=== PATIENT | male | born 1945 | race Caucasian/White ===

== ENCOUNTER → 2016-09-18 | Outpatient (CLI) | payer OTHER, MEDICARE ==
--- NOTE | 2016-09-18 10:41 | DX ---
Chest, PA and Lateral History: Cough Comparison: November 09, 2012 Findings: Lungs are clear, without infiltrate or consolidation. There is chronic or recurrent retroca rdiac bronchial wall thickening. Lung volumes are again moderately prominent. Heart size and pulmonar y vascularity are normal. There is stable tortuosity of the aorta. There is no adenopathy or mass les ion. There is no pleural effusion or pneumothorax. A stable old healed right clavicle fracture is not ed. Impression: No pneumonia. COPD +- airways disease.
== END ==
LOC: GIMAGING 10:17
PROVIDERS: ATTEND Family Medicine
DX: R05 Cough (principal)
CPT/HCPCS: 71020-PO

== ENCOUNTER 2016-09-25 19:15 | Observation (INO) | payer OTHER, MEDICARE ==
--- NOTE | 2016-09-25 19:42 | CPEKG ---
Heart Rate: 165 RR Interval: 364 QRSD Interval: 94 QT Interval: 286 QTC Interval: 474 P [place]: 0 QRS [place]: 21 T Wave [place]: 26 EKG Severity - ABNORMAL ECG - EKG Impression: atrial flutter Electronically Signed By: Evan May 26-Sep-2016 14:45:48
--- NOTE | 2016-09-25 19:46 | EDPHY ---
H & P Stated Complaint: Rapid Heart Rate/ SOB HPI/ROS: CHIEF COMPLAINT: Tachycardia. HISTORY OF PRESENT ILLNESS: The patient is a 70-year-old male with a history of SVT status post successful ablation in 2012 who presents with tachycardia for the past week. He visited his primary care provider, Dr. Bah, 7 days ago because of cough and respiratory symptoms. His fast heart rate was noticed at that time. He was started on a Z-Brandon which he has completed and also on prednisone and an inhaler. He has been re-evaluated in the office of his primary care physician a couple of times since then because of persistent cough. He tells me that each time he was noted to have an elevated heart rate. He believes that his heart rate was measured in the 150s to 160s. Tonight he was advised to come to the hospital to have a blood test done; he believes that he was going to be tested for pulmonary embolism. He denies chest pain, lightheadedness, or shortness of breath. He has not had calf pain or swelling. No recent travel. He has not had fever. He does admit associated mild diaphoresis. He takes Ritalin for attention deficit disorder and was recently started on and inhaler and prednisone; he does not use illicit drugs. REVIEW OF SYSTEMS: A 10 point review of systems was performed and is negative with the exception of the elements mentioned in the history of present illness. Source: Patient Exam Limitations: No limitations - Personal History Current Tetanus/Diphtheria Vaccine: Yes Current Tetanus Diphtheria and Acellular Pertussis (TDAP): Yes - Medical/Surgical History Hx Asthma: No Hx Chronic Respiratory Disease: No Hx Diabetes: No Hx Cardiac Disease: No Hx Renal Disease: No Hx Cirrhosis: No Hx Alcoholism: No Hx HIV/AIDS: No Hx Splenectomy or Spleen Trauma: No Other PMH: 1. History of tachycardia status post ablation in 2012. 2. Hyperlipidemia. 3. Attention deficit disorder. 4. Glaucoma. 5. 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 He lives alone/independently. - Physical Exam Exam: General Appearance: Alert, no acute distress. Pulse 170. BP 180/118. Eyes: Pupils equal and round, no conjunctival injection, no discharge. ENT, Mouth: Mucous membranes are moist, no oropharyngeal erythema or edema. Neck: No lymphadenopathy, supple. No jugular venous distention. No carotid bruits. Respiratory: Lungs are clear to auscultation; no wheezes, rales, or rhonchi. Cardiovascular: Tachycardic. Gastrointestinal: Abdomen is soft and nontender, no masses or organomegaly, bowel sounds normal. Skin: Warm and dry, no rashes, normal color. Back: Nontender to palpation over the thoracolumbar spine. Extremities: Trace bilateral ankle edema. No calf tenderness or swelling. Neurological: Alert and oriented. Moving all four extremities easily and equally. Psychiatric: Normal affect. Constitutional: Initial Vital Signs Temperature (C) 36.9 C 09/25/16 19:23 Heart Rate 170 H 09/25/16 19:23 Respiratory Rate 16 09/25/16 19:23 Blood Pressure 148/102 H 09/25/16 19:23 O2 Sat (%) 94 09/25/16 19:23 O2 Delivery Mode Room Air Allergies/Adverse Reactions: No Known Allergies Allergy (Unverified 03/16/13 10:47) Home Medications: Medication Instructions Recorded Atorvastatin Calcium [Lipitor 10 10 mg PO DAILY 03/16/13 mg (RX)] Coenzyme Q10 [Co Q-10 30 mg (OTC)] 30 mg PO DAILY 03/16/13 Fluticasone Nasal [Flonase Nasal 1 sprays NASAL DAILY PRN 03/16/13 Flushing (RX)] Magnesium Oxide [Magnesium Oxide 400 mg PO DAILY 03/16/13 400 mg (OTC)] Methylphenidate HCl [Ritalin 5mg 5 mg PO TID PRN 03/16/13 (RX)] Zolpidem Tartrate [Ambien 10 mg] 10 mg PO HS PRN 03/16/13 Albuterol [Ventolin Hfa Inhaler] 2 puffs IH Q4H PRN 09/25/16 Aspirin EC [Aspirin EC 81 mg (*)] 81 mg PO DAILY 09/25/16 Cholecalciferol Vit D3 [Vitamin D3 1,000 units PO DAILY 09/25/16 (*)] Dorzolamide 2% [Trusopt 2% (*)] 1 drops OP TID 09/25/16 Guaifenesin/Codeine Phosphate 10 ml PO Q6H PRN 09/25/16 [Codeine-Guaifen 10-100 mg/5 ml] Multivitamins [Multivitamin (*)] 1 each PO DAILY 09/25/16 Psyllium Husk [Metamucil] 1 - 2 tab PO DAILY 09/25/16 predniSONE 40 mg PO DAILY 09/25/16 Medical Decision Making - Diagnostics EKG Interpretation: 12 lead EKG is interpreted in Trace master View by emergency department physician. Tachycardia with a rate of 170. This appears to be atrial flutter. 2nd EKG performed after adenosine was administered also shows tachycardia with a rate of 170 and atrial flutter. Imaging: X-ray of the chest was obtained. I viewed the images myself on the PACS system. The radiologist interpretation per Dr. Mendoza is: 1. Borderline cardiac enlargement without pulmonary edema. 2. Suspect airways disease. I discussed the x-ray findings with the patient. ED Course/Re-evaluation: On arrival the patient's EKG showed sinus tachycardia with a rate of 170. The rhythm appears to be atrial flutter. An IV was established and labs ordered. No carotid bruits were heard and carotid massage was performed by me with no effect. The patient has a history of tachycardia that was treated by ablation in 2012. To his knowledge, he has not had any further episodes of tachycardia. He was not aware that his heart rate was fast. He has not had chest pain or shortness of breath. I suspect that this tachycardia has been present for the past few days. He reports that it was commented upon when he visited his primary care office over the past week. 2010: Spoke with Dr. Diaz, cardiology. 2041: Will try to slow his heart rate with adenosine. 6mg IV Adenosine administered. Heart rate 166. 2049: 12mg IV Adenosine administered. Heart rate 168. Is the adenosine has been ineffective will begin Diltiazem 20mg IV and a Diltiazem drip. 2127: Consulted with Dr. Arnold, hospitalist. He accepts admission. Patient is being admitted to the PCU on a diltiazem drip. While in the emergency department his heart rate decreased to 80s to low 100s. He remained hypertensive. At no time did he reports symptoms such as chest pain or shortness of breath. Differential Diagnosis: I considered a differential diagnosis that includes but is not limited to supraventricular tachycardia, atrial flutter, atrial fibrillation, wide complex tachycardia, ventricular fibrillation, with potential etiologies including myocardial ischemia, valvular disease, use of stimulants, recent infection, hypertension, and heart failure. - Data Points Laboratory Results: Laboratory Results 09/25/16 19:34 09/25/16 19:34 Medications Given: Discontinued Medications Adenosine (Adenosine) 12 mg IVP EDNOW ONE Stop: 09/25/16 20:51 Last Admin: 09/25/16 21:01 Dose: 12 mg Adenosine (Adenosine) 6 mg IVP EDNOW ONE Stop: 09/25/16 20:44 Last Admin: 09/25/16 21:01 Dose: 6 mg Diltiazem HCl (Cardizem 25 Mg/5 Ml Vial) 20 mg IVP EDNOW ONE Stop: 09/25/16 20:53 Last Admin: 09/25/16 20:59 Dose: 20 mg Dorzolamide HCl (Trusopt 2%) 1 drops OP TID FCO Stop: 03/25/17 08:59 Last Admin: 09/26/16 18:13 Dose: Not Given Enoxaparin Sodium (Lovenox) 40 mg SC DAILY FCO Stop: 03/25/17 08:59 Last Admin: 09/26/16 08:40 Dose: 40 mg Diltiazem HCl 125 mg/ Dextrose 150 mls @ 0 mls/hr IV EDNOW ONE; As Directed PRN Reason: Protocol Stop: 09/25/16 20:53 Last Admin: 09/25/16 21:07 Dose: 150 mls Sodium Chloride (Ns) 1,000 mls @ 100 mls/hr IV CONT FCO Stop: 03/24/17 22:44 Last Admin: 09/26/16 14:46 Dose: 1,000 mls Diltiazem HCl 125 mg/ Dextrose 150 mls @ 0 mls/hr IV CONT FCO; Per Protocol PRN Reason: Protocol Stop: 03/24/17 22:59 Last Admin: 09/26/16 08:48 Dose: 150 mls Zolpidem Tartrate (Ambien) 5 mg PO HS PRN PRN Reason: Sleep/Insomnia, use 1st Stop: 03/24/17 22:34 Last Admin: 09/26/16 00:33 Dose: 5 mg Departure - Departure Disposition: [facility] Clinical Impression: Tachycardia Condition: Fair Report Scribed for: Bee Welch Report Scribed by: Andreas Diop Date of Report: 09/25/16 Time of Report: 19:46 Physician Review and Approval Statement: 09/27/16 07:17 Portions of this note were transcribed by the faculty i on call medical assistant. I, Dr. Bee Welch, personally performed the history, physical exam, and medical decision- making; and confirmed the accuracy of the information in the transcribed note.
[2016-09-25 19:51] LABS: ABSOLUTE NRBC COUNT 0.02 10^3/uL (0-0.01); ADD DIFF? YES; ADD MORPH? NO; ADD SCAN? NO; ATYPICAL LYMPHOCYTE FLAG 0 (0-99); FRAGMENT RBC FLAG 0 (0-99); HEMATOCRIT 45.2 % (40.0-51.0); HEMOGLOBIN 15.5 g/dL (13.7-17.5); LEFT SHIFT FLG 40 (0-99); LIPEMIA HEMOLYSIS FLAG 90 (0-99); MEAN CELL HEMOGLOBIN 30.3 pg (27.9-34.1); MEAN CELL HEMOGLOBIN CONCENTR. 34.3 g/dL (32.4-36.7); MEAN CELL VOLUME 88.3 fL (81.5-99.8); MEAN PLATELET VOLUME 9.1 fL (8.7-11.7); NRBC-AUTO% 0.2 % (0.0-0.2); PLATELET CLUMPS FLAG 0 (0-99); PLATELET COUNT 474 10^3/uL (150-400); RED BLOOD CELL COUNT 5.12 10^6/uL (4.40-6.38); RED CELL DISTRIBUTION WIDTH 12.3 % (11.5-15.2)
[2016-09-25 19:58] LABS: APTT 25.7 SEC (23.0-38.0); INR 0.98 (0.83-1.16); PROTIME(PATIENT) 12.9 SEC (12.0-15.0)
[2016-09-25 19:59] LABS: ANION GAP 16 mEq/L (8-16); CALCIUM 9.4 mg/dL (8.5-10.4); CARBON DIOXIDE 21 mEq/l (22-31); CHLORIDE 110 mEq/L (97-110); GLOMERULAR FILTRATION RATE > 60; GLUCOSE 139 mg/dL (70-100); POTASSIUM 4.5 mEq/L (3.5-5.2); SODIUM 147 mEq/L (134-144)
[2016-09-25 20:09] LABS: TROPONIN I < 0.012 ng/mL (0-0.034)
[2016-09-25] MEDS ORDERED: ADENOSINE 6 MG/2 ML VIAL ONE (20:29)
[2016-09-25 20:35] LABS: PLATELET ESTIMATE ADEQUATE (ADEQ)
[2016-09-25] MEDS ORDERED: ADENOSINE 6 MG/2 ML VIAL IVP ONE ×2 (20:43→20:50)
--- NOTE | 2016-09-25 20:45 | DX ---
Portable Chest September 25, 2016 at 2027 hours Clinical Indications: Cough, fever and fatigue for one week in a 70-year-old male; comparison to the prior study September 18, 2016. Findings: No focal pulmonary consolidation is identified. Mild peribronchial thickening is seen and t here is minimal left basilar atelectasis. Heart is enlarged allowing for portable technique. No pleur al effusion is identified. Pulmonary vascularity is normal. Aortic tortuosity is seen which can be as sociated with systemic arterial hypertension. Hyperexpansion is suspected. Impression: 1. Borderline cardiac enlargement without pulmonary edema. 2. Suspect airways disease.
[2016-09-25] MEDS ORDERED: DILTIAZEM 25 MG/5 ML VIAL IVP ONE (20:52)
[2016-09-25] MEDS ORDERED: DILTIAZEM 125 MG in D5W 125 ML IV ONE (20:52)
--- NOTE | 2016-09-25 20:55 | CPEKG ---
Heart Rate: 169 RR Interval: 355 P-R Interval: 352 QRSD Interval: 98 QT Interval: 276 QTC Interval: 463 P Constant[place]: 0 QRS Constant[place]: -9 T Wave Constantine: -47 EKG Severity - ABNORMAL ECG - EKG Impression: Atrial flutter Electronically Signed By: Bee Welch 26-Sep-2016 00:28:19
[2016-09-25] MEDS ORDERED: HYDROCODONE/APAP 5/325 TAB PO PRN (22:35)
[2016-09-25] MEDS ORDERED: ONDANSETRON 4 MG/2 ML VIAL IVP PRN (22:35)
[2016-09-25] MEDS ORDERED: ONDANSETRON DISINTEGRATING 4 MG TAB PO PRN (22:35)
[2016-09-25] MEDS ORDERED: ACETAMINOPHEN 325 MG TAB PO PRN (22:35)
[2016-09-25] MEDS ORDERED: ZOLPIDEM TARTRATE 5 MG TAB PO PRN (22:35)
[2016-09-25] MEDS ORDERED: DILTIAZEM 125 MG in D5W 125 ML IV SCH (23:00)
[2016-09-25] MEDS ORDERED: PSYLLIUM HUSK PO PRN (23:42)
--- NOTE | 2016-09-26 00:03 | PDGENHP ---
History and Physical - Chief Complaint SVT - History of Present Illness Patient is a 70-year-old male with history of hyperlipidemia, obstructive sleep apnea and glaucoma who presents ED with tachycardia. Patient states for the past week and a half he has been experiencing upper respiratory infection symptoms, including nasal congestion, sneezing and coughing. He went to his PMD' s office with these symptoms, his HR was noted to be elevated (130range), he had a chest x-ray that did not reveal any infiltrate and he was given a z-pack, an albuterol inhaler and a short course of prednisone. He complied with these medications, however, he continued to have a cough and felt generally fatigued. He reports associated pleuritic chest pain with deep inspiration and coughing, but denied any palpitations, substernal chest pain, lightheadedness/dizziness. He went again to his PMD's office on 09/23 and his HR was again noted to be elevated. He was called back and suggested he get another blood test to r/o a pulmonary embolism. He then decided to come to the ED for this blood test to speed up the processing. On arrival to the ED, patient's HR was noted to be in the 160-170 range, BP stable, afebrile. EKG revealed SVT. He was given adenosine 6, 12 mg without improvement in rate. He was then given diltiazem IVP and initiated on dilt drip and HR improved to the 80 range. BP remained stable throughout ED course. CXR did not reveal any acute pathology and labs were wnl, including neg troponin and d-dimer. He was then admitted to the hospitalist service for further management. History Information - Allergies/Home Medication List Allergies/Adverse Reactions: No Known Allergies Allergy (Unverified 03/16/13 10:47) Home Medications: Atorvastatin Calcium [Lipitor 10 mg (RX)] 10 mg PO DAILY 03/16/13 [Last Taken ] Coenzyme Q10 [Co Q-10 30 mg (OTC)] 30 mg PO DAILY 03/16/13 [Last Taken 09/25/16] Fluticasone Nasal [Flonase Nasal Whit[place] (RX)] 1 sprays NASAL DAILY PRN 03/16/13 [ Last Taken 09/20/16] Magnesium Oxide [Magnesium Oxide 400 mg (OTC)] 400 mg PO DAILY 03/16/13 [Last Taken 09/25/16] Methylphenidate HCl [Ritalin 5mg (RX)] 5 mg PO TID PRN 03/16/13 [Last Taken 12/01] Zolpidem Tartrate [Ambien 10 mg] 10 mg PO HS PRN 03/16/13 [Last Taken 09/24/16] Albuterol [Ventolin Hfa Inhaler] 2 puffs IH Q4H PRN 09/25/16 [Last Taken Unknown ] Aspirin EC [Aspirin EC 81 mg (*)] 81 mg PO DAILY 09/25/16 [Last Taken 09/25/16] Cholecalciferol Vit D3 [Vitamin D3 (*)] 1,000 units PO DAILY 09/25/16 [Last Taken 09/25/16] Dorzolamide 2% [Trusopt 2% (*)] 1 drops OP TID 09/25/16 [Last Taken 09/25/16] Guaifenesin/Codeine Phosphate [Codeine-Guaifen 10-100 mg/5 ml] 10 ml PO Q6H PRN 09/25/16 [Last Taken 09/25/16] Multivitamins [Multivitamin (*)] 1 each PO DAILY 09/25/16 [Last Taken 09/25/16] Psyllium Husk [Metamucil] 1 - 2 tab PO DAILY 09/25/16 [Last Taken 09/25/16] predniSONE 40 mg PO DAILY 09/25/16 [Last Taken 09/25/16] I have personally reviewed and updated: family history, medical history, social history, surgical history - Past Medical History Additional medical history: Previous history of AVNRT s/p ablation. Hyperlipidemia. ADHD. SHI, using CPAP nightly. glaucoma - Surgical History Additional surgical history: Tonsillectomy. 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 Review of Systems ROS: 10pt was reviewed & negative except for what was stated in HPI & below Physical Exam Temp Pulse Resp BP Pulse Ox 36.7 C 91 16 137/90 H 91 L 09/25/16 23:44 09/25/16 23:44 09/25/16 23:44 09/25/16 23:44 09/25/16 23:44 Constitutional: no apparent distress, appears nourished, not in pain Eyes: PERRL, anicteric sclera, EOMI Ears, Nose, Mouth, Throat: moist mucous membranes, hearing normal, ears appear normal, no oral mucosal ulcers Cardiovascular: regular rate and rhythym, no murmur, rub, or gallop, pulses symmetric bilaterally, No JVD, No edema Peripheral Pulses: 2+: dorsalis-pedis (R), dorsalis-pedis (L) Respiratory: no respiratory distress, no rales or rhonchi, clear to auscultation Gastrointestinal: normoactive bowel sounds, soft, non-tender abdomen, no palpable masses, No guarding, No rebound Genitourinary: no bladder fullness, no bladder tenderness Skin: warm, normal color, no rashes or abrasions, no fluctuance, no induration, No mottled Musculoskeletal: full muscle strength, no muscle tenderness, normal joint ROM, no joint effusions Neurologic: AAOx3, sensation intact bilaterally, CN II-XII Intact, No weakness, No numbness Psychiatric: interacting appropriately, not anxious, not encephalopathic, thought process linear Lab Data & Imaging Review 09/25/16 19:34 09/25/16 19:34 WBC 12.67 10^3/uL (3.80-9.50) H 09/25/16 19:34 RBC 5.12 10^6/uL (4.40-6.38) 09/25/16 19:34 Hgb 15.5 g/dL (13.7-17.5) 09/25/16 19:34 Hct 45.2 % (40.0-51.0) 09/25/16 19:34 MCV 88.3 fL (81.5-99.8) 09/25/16 19:34 MCH 30.3 pg (27.9-34.1) 09/25/16 19:34 MCHC 34.3 g/dL (32.4-36.7) 09/25/16 19:34 RDW 12.3 % (11.5-15.2) 09/25/16 19:34 Plt Count 474 10^3/uL (150-400) H 09/25/16 19:34 MPV 9.1 fL (8.7-11.7) 09/25/16 19:34 Neut % (Auto) Not Reported 09/25/16 19:34 Lymph % (Auto) Not Reported 09/25/16 19:34 [place] % (Auto) Not Reported 09/25/16 19:34 Eos % (Auto) Not Reported 09/25/16 19:34 Baso % (Auto) Not Reported 09/25/16 19:34 Nucleat RBC Rel Count 0.2 % (0.0-0.2) 09/25/16 19:34 Absolute Neuts (auto) Not Reported 09/25/16 19:34 Absolute Lymphs (auto) Not Reported 09/25/16 19:34 Absolute Monos (auto) Not Reported 09/25/16 19:34 Absolute Eos (auto) Not Reported 09/25/16 19:34 Absolute Basos (auto) Not Reported 09/25/16 19:34 Absolute Nucleated RBC 0.02 10^3/uL (0-0.01) H 09/25/16 19:34 Immature Gran % Not Reported 09/25/16 19:34 Seg Neutrophils % 74 % 09/25/16 19:34 Band Neutrophils % 3 % 09/25/16 19:34 Lymphocytes % 16 % 09/25/16 19:34 Monocytes % 5 % 09/25/16 19:34 Metamyelocytes % 2 % 09/25/16 19:34 Immature Gran # Not Reported 09/25/16 19:34 Absolute Seg Neuts 9.38 10^/uL (1.70-6.50) H 09/25/16 19:34 Absolute Band Neuts 0.38 10^3/uL (0.00-0.70) 09/25/16 19:34 Absolute Lymphocytes 2.03 10^3/uL (1.00-3.00) 09/25/16 19:34 Absolute Monocytes 0.63 10^3/uL (0.30-0.80) 09/25/16 19:34 Absolute Metamyelocyte 0.25 10^3/mL (0.00-0.00) H 09/25/16 19:34 RBC/WBC/PLT Morphology NORMAL (NORMAL) 09/25/16 19:34 Platelet Estimate ADEQUATE (ADEQ) 09/25/16 19:34 PT 12.9 SEC (12.0-15.0) 09/25/16 19:34 INR 0.98 (0.83-1.16) 09/25/16 19:34 APTT 25.7 SEC (23.0-38.0) 09/25/16 19:34 D-Dimer 0.42 ug/mLFEU (0.00-0.50) 09/25/16 19:34 Sodium 147 mEq/L (134-144) H 09/25/16 19:34 Potassium 4.5 mEq/L (3.5-5.2) 09/25/16 19:34 Chloride 110 mEq/L (97-110) 09/25/16 19:34 Carbon Dioxide 21 mEq/l (22-31) L 09/25/16 19:34 Anion Gap 16 mEq/L (8-16) 09/25/16 19:34 BUN 19 mg/dL (7-23) 09/25/16 19:34 Creatinine 1.0 mg/dL (0.7-1.3) 09/25/16 19:34 Estimated GFR > 60 09/25/16 19:34 Glucose 139 mg/dL (70-100) H 09/25/16 19:34 Calcium 9.4 mg/dL (8.5-10.4) 09/25/16 19:34 Troponin I < 0.012 ng/mL (0-0.034) 09/25/16 19:34 Visualized and Interpreted Chest x-ray results: Yes Chest X-Ray results: no infiltrate, normal Visualized and Interpreted EKG results: Yes EKG additional interpertation: narrow complex tachycardia @ 169 bpm, no obvious ischemic changes; inf q waves Assessment & Plan Assessment: Patient is a 70-year-old male with history of previously ablated AVNRT, hyperlipidemia, attention deficit hyperactivity disorder presents to the ED with a tachycardia. EKG reveals SVT to the 160-170 range, unresponsive did adenosine, has improved with diltiazem. Plan: # svt Patient largely asymptomatic despite tachycardia on arrival. Initial EKG a narrow complex tachycardia/SVT, however, rate-controlled EKG reveals Aflutter. BP remained stable throughout presenting course, and given pt's account of HPI, it seems SVT has been present for at least 1 week. D-dimer is negative, troponin also negative. Rate has improved with diltiazem drip. CHADSVASc score is 1 (age), pt already on aspirin daily. Cardiology has been consulted by the ED. - monitor on telemetry - check TTE, TSH, lipid panel - cont diltiazem drip, transition to PO meds - cont aspirin daily for stroke prevention - f/u cardiology recs regarding CV # cough/URI Patient describes URI-type symptoms for about 1 week, feels they have begun to improve. Denies any recent fevers/chills, although does report subjective fever early in the course. Leukocytosis present on arrival likely reactive and related to recent initiation of prednisone. Respiratory status stable without O2 supplementation. # HLD Cont home statin # ADHD Will hold home stimulant given tachyarrhythmia. # Glaucoma cont home eye drops. # dispo: admit to observation status # full code
--- NOTE | 2016-09-26 00:11 | CPEKG ---
Heart Rate: 85 RR Interval: 706 P-R Interval: 184 QRSD Interval: 104 QT Interval: 444 QTC Interval: 528 P [place]on: 63 QRS [place]: -22 T Wave [place]: -19 EKG Severity - ABNORMAL ECG - EKG Impression: atrial flutter EKG Impression: BORDERLINE LEFT AXIS DEVIATION Electronically Signed By: Evan May 26-Sep-2016 04:57:10
[2016-09-26] MEDS ORDERED: PSYLLIUM METAMUCIL 1 PKT PO PRN (00:17)
[2016-09-26] MEDS: guaiFENesin/CODEINE PHOS 10 ML UDCUP PO PRN ×3 (00:33→18:13)
[2016-09-26] MEDS: NS 1,000 ML IV SCH ×2 (03:45→14:46)
[2016-09-26 07:16] LABS: ABSOLUTE NRBC COUNT 0.02 10^3/uL (0-0.01); ADD DIFF? YES; ADD MORPH? NO; ADD SCAN? NO; ATYPICAL LYMPHOCYTE FLAG 10 (0-99); FRAGMENT RBC FLAG 0 (0-99); HEMATOCRIT 43.9 % (40.0-51.0); HEMOGLOBIN 14.6 g/dL (13.7-17.5); LEFT SHIFT FLG 40 (0-99); LIPEMIA HEMOLYSIS FLAG 80 (0-99); MEAN CELL HEMOGLOBIN 29.7 pg (27.9-34.1); MEAN CELL HEMOGLOBIN CONCENTR. 33.3 g/dL (32.4-36.7); MEAN CELL VOLUME 89.2 fL (81.5-99.8); MEAN PLATELET VOLUME 9.1 fL (8.7-11.7); NRBC-AUTO% 0.2 % (0.0-0.2); PLATELET CLUMPS FLAG 0 (0-99); PLATELET COUNT 441 10^3/uL (150-400); RED BLOOD CELL COUNT 4.92 10^6/uL (4.40-6.38); RED CELL DISTRIBUTION WIDTH 12.5 % (11.5-15.2)
[2016-09-26 07:21] LABS: INR 0.97 (0.83-1.16); PROTIME(PATIENT) 12.8 SEC (12.0-15.0)
[2016-09-26 07:28] LABS: COLOR YELLOW; LEUKOCYTE ESTERASE,URINE NEGATIVE (NEGATIVE); NITRITE,URINE NEGATIVE (NEGATIVE)
[2016-09-26 07:38] LABS: ANION GAP 14 mEq/L (8-16); CALCIUM 9.1 mg/dL (8.5-10.4); CARBON DIOXIDE 25 mEq/l (22-31); CHLORIDE 108 mEq/L (97-110); CHOLESTEROL 152 mg/dL (140-220); CREATININE 0.9 mg/dL (0.7-1.3); GLOMERULAR FILTRATION RATE > 60; GLUCOSE 105 mg/dL (70-100); HIGH DENSITY LIPOPROTEIN 31 mg/dL (40-65); LDL/HDL RATIO 2.84 RATIO (1.00-3.64); LOW DENSITY LIPOPROTEIN 88 mg/dL (80-100); NON-HIGH DENSITY LIPOPROTEIN 121 mg/dL (90-129); POTASSIUM 4.2 mEq/L (3.5-5.2); SODIUM 147 mEq/L (134-144); TRIGLYCERIDE 167 mg/dL (40-150); VERY LOW DENSITY LIPOPROTEINS 33 mg/dL (8-25)
[2016-09-26 07:47] LABS: TROPONIN I 0.014 ng/mL (0-0.034)
[2016-09-26 07:59] LABS: PLATELET ESTIMATE INCREASED (ADEQ)
[2016-09-26 08:02] LABS: LARGE PLATELETS PRESENT
[2016-09-26] MEDS: DORZOLAMIDE 2% OPTH DROPS OP SCH ×3 (08:33→19:54)
--- NOTE | 2016-09-26 08:38 | CPEKG ---
Heart Rate: 82 RR Interval: 732 P-R Interval: 216 QRSD Interval: 100 QT Interval: 456 QTC Interval: 533 P Sullivan: 58 QRS Sullivan: -10 T Wave Sullivan: -7 EKG Severity - ABNORMAL ECG - EKG Impression: ATRIAL FLUTTER Electronically Signed By: Evan May 26-Sep-2016 14:44:33
[2016-09-26] MEDS: CHOLECALCIFEROL VIT D3 1,000 UNITS TAB PO SCH (08:41)
[2016-09-26] MEDS: ASPIRIN EC 81 MG TAB PO SCH (08:41)
[2016-09-26] MEDS: ATORVASTATIN CALCIUM 10 MG TAB PO SCH (08:41)
[2016-09-26] MEDS: MULTIVITAMINS 1 EACH TAB PO SCH (08:41)
[2016-09-26] MEDS: MAGNESIUM OXIDE 400 MG TAB PO SCH (08:41)
[2016-09-26] MEDS ORDERED: ENOXAPARIN 40 MG/0.4 ML SYR SC SCH (09:00)
[2016-09-26] MEDS: COENZYME Q10 30 MG PO SCH (10:05)
[2016-09-26] MEDS: DILTIAZEM 30 MG TAB PO SCH ×2 (11:57→18:11)
--- NOTE | 2016-09-26 17:10 | PDCARCONS ---
Cardiology Consult Reason for Consult: Tachycardia Chief Complaint: respiratory infection Requesting Physician: Dr. Saini History of Present Illness: 70-year-old male history of tachy arrhythmias status post ablation in 2012. Patient has been struggling with a viral pulmonary infection over the last several weeks. He has been given a Z-Brandon. He was not improving. Physical examination 10 days ago revealed an elevated heart rate. He was seen in follow- up yesterday and found have an increased heart rate. He was sent to the ER for a D-dimer which was negative. EKG showed atrial flutter he was admitted to the hospital. He denies palpitations. He has had no syncope or near syncope. Other than his cough and respiratory complaints he has no cardiac symptomatology. In particular no angina. No PND. No orthopnea. No swelling. Patient has not been chronically anticoagulated for his atrial tachyarrhythmias. Cardiac Risk includes age, male sex, hyperlipidemia. He has had significant malaise related to this illness. Medications: Medications Generic Name Dose Route Start Last Admin Trade Name Freq PRN Reason Stop Dose Admin Aspirin Buffered 81 mg 09/26/16 09:00 09/26/16 08:41 Aspirin Ec PO 03/25/17 08:59 81 mg DAILY [facility] Atorvastatin Calcium 10 mg 09/26/16 09:00 09/26/16 08:41 Lipitor PO 03/25/17 08:59 10 mg DAILY [facility] Diltiazem HCl 30 mg 09/26/16 12:00 09/26/16 11:57 Cardizem Immediate Release PO 03/25/17 11:59 30 mg Q6HRS [facility] History Information - Allergies/Home Medication List Allergies/Adverse Reactions: No Known Allergies Allergy (Unverified 03/16/13 10:47) Home Medications: Atorvastatin Calcium [Lipitor 10 mg (RX)] 10 mg PO DAILY 03/16/13 [Last Taken ] Coenzyme Q10 [Co Q-10 30 mg (OTC)] 30 mg PO DAILY 03/16/13 [Last Taken 09/25/16] Fluticasone Nasal [Flonase Nasal Ledger (RX)] 1 sprays NASAL DAILY PRN 03/16/13 [ Last Taken 09/20/16] Magnesium Oxide [Magnesium Oxide 400 mg (OTC)] 400 mg PO DAILY 03/16/13 [Last Taken 09/25/16] Methylphenidate HCl [Ritalin 5mg (RX)] 5 mg PO TID PRN 03/16/13 [Last Taken 12/01] Zolpidem Tartrate [Ambien 10 mg] 10 mg PO HS PRN 03/16/13 [Last Taken 09/24/16] Albuterol [Ventolin Hfa Inhaler] 2 puffs IH Q4H PRN 09/25/16 [Last Taken Unknown ] Aspirin EC [Aspirin EC 81 mg (*)] 81 mg PO DAILY 09/25/16 [Last Taken 09/25/16] Cholecalciferol Vit D3 [Vitamin D3 (*)] 1,000 units PO DAILY 09/25/16 [Last Taken 09/25/16] Dorzolamide 2% [Trusopt 2% (*)] 1 drops OP TID 09/25/16 [Last Taken 09/25/16] Guaifenesin/Codeine Phosphate [Codeine-Guaifen 10-100 mg/5 ml] 10 ml PO Q6H PRN 09/25/16 [Last Taken 09/25/16] Multivitamins [Multivitamin (*)] 1 each PO DAILY 09/25/16 [Last Taken 09/25/16] Psyllium Husk [Metamucil] 1 - 2 tab PO DAILY 09/25/16 [Last Taken 09/25/16] predniSONE 40 mg PO DAILY 09/25/16 [Last Taken 09/25/16] I have personally reviewed and updated: family history, medical history, social history - Family History Positive for: non-pertinent. Negative for: sudden - Social History Smoking Status: Never smoked Alcohol Use: Other (2 drinks prior to the day of admission.) Drug Use: None Cardiac History - Cardiac History Cardiac Risk Factors: lipidemia, age > 65, male CARLOS Risk Evaluation greater or equal to 3 CAD risk factors: no known CAD(stenosis greater or eqaul to 50%): no Age in Years: 65-74 Sex: Male Congestive Heart Failure History: No Hypertension History: No Stroke/TIA/Thromboembolism History: No Vascular Disease History: No Diabetes Mellitus: No [id number] Score: 5 Physical Exam Temp Pulse Resp BP Pulse Ox 36.7 C 76 18 133/88 H 93 09/26/16 16:00 09/26/16 16:00 09/26/16 16:00 09/26/16 16:00 09/26/16 16:00 Constitutional: no apparent distress Eyes: PERRL, anicteric sclera Ears, Nose, Mouth, Throat: moist mucous membranes Cardiovascular: irregularly irregular, pulses symmetric bilaterally, No systolic murmur, No diastolic murmur, No JVD, No carotid bruit, No edema Peripheral Pulses: 1+: carotid (R), carotid (L) Respiratory: no respiratory distress, no rales or rhonchi, clear to auscultation Gastrointestinal: normoactive bowel sounds, soft, non-tender abdomen, no palpable masses Skin: warm, normal color Musculoskeletal: full muscle strength, no muscle tenderness Neurologic: AAOx3, sensation intact bilaterally Psychiatric: interacting appropriately, not anxious Lymph, Heme, Immunologic: no cervical LAD, no supraclavicular LAD Lab and Imaging 09/26/16 07:00 09/26/16 07:00 WBC 13.18 10^3/uL (3.80-9.50) H 09/26/16 07:00 RBC 4.92 10^6/uL (4.40-6.38) 09/26/16 07:00 Hgb 14.6 g/dL (13.7-17.5) 09/26/16 07:00 Hct 43.9 % (40.0-51.0) 09/26/16 07:00 MCV 89.2 fL (81.5-99.8) 09/26/16 07:00 MCH 29.7 pg (27.9-34.1) 09/26/16 07:00 MCHC 33.3 g/dL (32.4-36.7) 09/26/16 07:00 RDW 12.5 % (11.5-15.2) 09/26/16 07:00 Plt Count 441 10^3/uL (150-400) H 09/26/16 07:00 MPV 9.1 fL (8.7-11.7) 09/26/16 07:00 Neut % (Auto) Not Reported 09/26/16 07:00 Lymph % (Auto) Not Reported 09/26/16 07:00 Burke % (Auto) Not Reported 09/26/16 07:00 Eos % (Auto) Not Reported 09/26/16 07:00 Baso % (Auto) Not Reported 09/26/16 07:00 Nucleat RBC Rel Count 0.2 % (0.0-0.2) 09/26/16 07:00 Absolute Neuts (auto) Not Reported 09/26/16 07:00 Absolute Lymphs (auto) Not Reported 09/26/16 07:00 Absolute Monos (auto) Not Reported 09/26/16 07:00 Absolute Eos (auto) Not Reported 09/26/16 07:00 Absolute Basos (auto) Not Reported 09/26/16 07:00 Absolute Nucleated RBC 0.02 10^3/uL (0-0.01) H 09/26/16 07:00 Immature Gran % Not Reported 09/26/16 07:00 Seg Neutrophils % 59 % 09/26/16 07:00 Band Neutrophils % 1 % 09/26/16 07:00 Lymphocytes % 34 % 09/26/16 07:00 Monocytes % 3 % 09/26/16 07:00 Eosinophils % 3 % 09/26/16 07:00 Metamyelocytes % 2 % 09/25/16 19:34 Immature Gran # Not Reported 09/26/16 07:00 Absolute Seg Neuts 7.78 10^/uL (1.70-6.50) H 09/26/16 07:00 Absolute Band Neuts 0.13 10^3/uL (0.00-0.70) 09/26/16 07:00 Absolute Lymphocytes 4.48 10^3/uL (1.00-3.00) H 09/26/16 07:00 Absolute Monocytes 0.40 10^3/uL (0.30-0.80) 09/26/16 07:00 Absolute Eosinophils 0.40 10^3/uL (0.03-0.40) 09/26/16 07:00 Absolute Metamyelocyte 0.25 10^3/mL (0.00-0.00) H 09/25/16 19:34 RBC/WBC/PLT Morphology NORMAL (NORMAL) 09/26/16 07:00 Platelet Estimate INCREASED (ADEQ) H 09/26/16 07:00 Large Platelets PRESENT H 09/26/16 07:00 PT 12.8 SEC (12.0-15.0) 09/26/16 07:00 INR 0.97 (0.83-1.16) 09/26/16 07:00 APTT 26.0 SEC (23.0-38.0) 09/26/16 07:00 D-Dimer 0.42 ug/mLFEU (0.00-0.50) 09/25/16 19:34 Sodium 147 mEq/L (134-144) H 09/26/16 07:00 Potassium 4.2 mEq/L (3.5-5.2) 09/26/16 07:00 Chloride 108 mEq/L (97-110) 09/26/16 07:00 Carbon Dioxide 25 mEq/l (22-31) 09/26/16 07:00 Anion Gap 14 mEq/L (8-16) 09/26/16 07:00 BUN 21 mg/dL (7-23) 09/26/16 07:00 Creatinine 0.9 mg/dL (0.7-1.3) 09/26/16 07:00 Estimated GFR > 60 09/26/16 07:00 Glucose 105 mg/dL (70-100) H 09/26/16 07:00 Calcium 9.1 mg/dL (8.5-10.4) 09/26/16 07:00 Magnesium 2.0 mg/dL (1.6-2.3) 09/26/16 07:00 Troponin I 0.014 ng/mL (0-0.034) 09/26/16 07:00 Triglycerides 167 mg/dL (40-150) H 09/26/16 07:00 Cholesterol 152 mg/dL (140-220) 09/26/16 07:00 Cholesterol Risk Factr 1.0 (0.2-1.0) 09/26/16 07:00 LDL Cholesterol, Calc 88 mg/dL (80-100) 09/26/16 07:00 LDL Risk Factor 1.0 (0.2-1.0) 09/26/16 07:00 VLDL Cholesterol 33 mg/dL (8-25) H 09/26/16 07:00 Non-HDL Cholesterol 121 mg/dL (90-129) 09/26/16 07:00 HDL Cholesterol 31 mg/dL (40-65) L 09/26/16 07:00 LDL/HDL Ratio 2.84 RATIO (1.00-3.64) 09/26/16 07:00 Cholesterol/HDL Ratio 4.90 RATIO (1.00-4.97) 09/26/16 07:00 TSH 4.000 uIU/mL (0.465-4.680) 09/26/16 07:00 Urine Color YELLOW 09/26/16 07:20 Urine Appearance CLEAR 09/26/16 07:20 Urine pH 6.0 (5.0-7.5) 09/26/16 07:20 Ur Specific [place] 1.017 (1.002-1.030) 09/26/16 07:20 Urine Protein NEGATIVE (NEGATIVE) 09/26/16 07:20 Urine Ketones NEGATIVE (NEGATIVE) 09/26/16 07:20 Urine Blood NEGATIVE (NEGATIVE) 09/26/16 07:20 Urine Nitrate NEGATIVE (NEGATIVE) 09/26/16 07:20 Urine Bilirubin NEGATIVE (NEGATIVE) 09/26/16 07:20 Urine Urobilinogen NEGATIVE EU (0.2-1.0) 09/26/16 07:20 Ur Leukocyte Esterase NEGATIVE (NEGATIVE) 09/26/16 07:20 Urine Glucose NEGATIVE (NEGATIVE) 09/26/16 07:20 Laboratory Tests 09/25/16 09/26/16 09/26/16 19:34 00:40 07:00 Troponin I < 0.012 < 0.012 0.014 LDL Cholesterol, Calc 88 TSH 4.000 Chest X-ray Interpretation: other ( borderline cardiac size. Bronchial thickening. No acute infiltrate.) Visualized and Interpreted imaging results: Yes EKG Interpretation: Positive for: other ( Atrial flutter with controlled ventricular response) Echocardiogram: Mild to moderate mitral regurgitation with preserved LV systolic function. A/P Assessment: 70-year-old male with recent respiratory infection likely viral complicated by bacterial etiology. Status post the PAC. On inhaled therapy, prednisone. In this setting patient has developed atrial flutter now with a controlled ventricular response with history of AFib ablation in 2013. he is asymptomatic with stable vital signs. Echo shows preserved LV function with mild-to- moderate mitral regurgitation. There is no evidence of acute coronary syndrome. Metabolic evaluation including thyroid is unremarkable. Recommendations: Rate control with diltiazem orally. Begin oral anticoagulation with Eliquis 5 mg p.o. twice daily. Discharge from the hospital in the morning with follow up Dr. May/Chema 1 week Recommend overall 3 weeks of anticoagulation prior to cardioversion unless he becomes more symptomatic. Discussion with Dr. May regarding need for ablation with single episode. Questions were answered with him and his daughter. Will proceed with plan as outlined above. Hyperlipidemia well managed on statin therapy. Discussed with Dr. Saini. Past Medical History - Personal History Current Tetanus/Diphtheria Vaccine: Yes Current Tetanus Diphtheria and Acellular Pertussis (TDAP): Yes - Medical/Surgical History Hx Asthma: No Hx Chronic Respiratory Disease: No Hx Cardiac Disease: No Hx Diabetes: No Hx Renal Disease: No Hx Alcoholism: No Hx Cirrhosis: No Hx HIV/AIDS: No Hx Splenectomy or Spleen Trauma: No Other PMH: ADHD, AFib with ablation 3 years, left eye surg, sleep apnea uses cpap (central and obstructive) glaucoma, stretched retina, arthroxcopy righ tknee - Social History Smoking Status: Never smoked Review of Systems - Review of Systems Constitutional: chills, fever, malaise EENTM: no symptoms reported Respiratory: cough, shortness of breath Cardiac: no symptoms reported Gastrointestinal/Abdominal: no symptoms reported Genitourinary: no symptoms Musculoskelatal: no symptoms Skin: no symptoms Neurological: no symptoms, headache Hematologic/Lymphatic: no symptoms reported Immunologic/allergic: no symptoms reported
[2016-09-26] MEDS ORDERED: FLUTICASONE NASAL 120 SPRAYS/16 GM MDI EACHNARE PRN (17:40)
--- NOTE | 2016-09-26 17:48 | HOSPPROG ---
Hospitalist Progress Note Assessment/Plan: Prolonged service, direct patient care, face to face with patient and his partner care, at bedside, spent 40 minutes from 11:00 a.m. to 11:40 a.m., addressing the following: -patient's atrial flutter is either secondary to use of beta agonist or has been provoked by acute reactive airway exacerbation -his atrial flutter is currently rate controlled with a rate in the 80s, EKG demonstrates flutter waves -patient's acute reactive airway exacerbation has yet to clinically stabilize and he continues to have bilateral expiratory wheezes and bronchial breath sounds significant on physical exam -will initiate higher dosage of prednisone that he was taking as an outpatient, 60 mg daily, as well as scheduled DuoNeb therapy -as needed guaifenesin/codeine -transition from diltiazem continuous infusion to diltiazem 30 mg q.6 hours and gauge heart rate response -initiate systemic anticoagulation with Eliquis 5 mg twice daily -will hold on cardioversion for approximately 3 weeks and the patient will be reassessed in the outpatient setting by Dr. May prior to that time -discussed with Dr. Tan Objective: Vital Signs Temp Pulse Resp BP Pulse Ox 36.7 C 76 18 133/88 H 93 09/26/16 16:00 09/26/16 16:00 09/26/16 16:00 09/26/16 16:00 09/26/16 16:00 Laboratory Results 09/26/16 07:00 09/26/16 07:00 09/25/16 09/26/16 09/27/16 05:59 05:59 05:59 Intake Total 513 Balance 513 PT 12.8 SEC (12.0-15.0) 09/26/16 07:00 INR 0.97 (0.83-1.16) 09/26/16 07:00 ICD10 Worksheet Patient Problems: Problems Problem Status Diagnosed Atrial flutter Acute Tachycardia Acute
[2016-09-26] MEDS ORDERED: ZOLPIDEM TARTRATE 5 MG TAB PO PRN (17:49)
[2016-09-26] MEDS: predniSONE 20 MG TAB PO SCH (18:12)
[2016-09-26] MEDS: IPRATROPIUM/ALBUTEROL 3 ML DEYVIAL IH SCH (18:12)
[2016-09-26] MEDS: APIXABAN 5 MG TAB PO SCH (19:54)
[2016-09-27] MEDS: DILTIAZEM 30 MG TAB PO SCH ×2 (00:02→05:39)
[2016-09-27] MEDS: IPRATROPIUM/ALBUTEROL 3 ML DEYVIAL IH SCH ×3 (00:46→10:53)
[2016-09-27 05:48] VITALS: O2SAT 91
[2016-09-27 07:22] VITALS: BP 110/84; TEMP 97.7
[2016-09-27] MEDS: DORZOLAMIDE 2% OPTH DROPS OP SCH (07:45)
[2016-09-27] MEDS: CHOLECALCIFEROL VIT D3 1,000 UNITS TAB PO SCH (07:46)
[2016-09-27] MEDS: MULTIVITAMINS 1 EACH TAB PO SCH (07:46)
[2016-09-27] MEDS: MAGNESIUM OXIDE 400 MG TAB PO SCH (07:46)
[2016-09-27] MEDS: ASPIRIN EC 81 MG TAB PO SCH (07:47)
[2016-09-27] MEDS: APIXABAN 5 MG TAB PO SCH (07:47)
[2016-09-27] MEDS: ATORVASTATIN CALCIUM 10 MG TAB PO SCH (07:47)
[2016-09-27] MEDS: COENZYME Q10 30 MG PO SCH (07:55)
[2016-09-27] MEDS: predniSONE 20 MG TAB PO SCH (08:03)
[2016-09-27] MEDS ORDERED: DILTIAZEM CD 120 MG CAP PO SCH (09:30)
[2016-09-27 10:58] VITALS: PULSE 114; RESP 22
--- NOTE | 2016-09-27 10:59 | PDDCSUM ---
Discharge Summary Discharge Summary: DISCHARGE SUMMARY FOLLOW-UP ITEMS: Follow-up persistence of atrial flutter in Cardiology Clinic DATE OF ADMISSION: 09/25/2016 DATE OF DISCHARGE: 09/27/2016 DISCHARGE DIAGNOSES: 1. Acute atrial flutter 2. Acute reactive airway exacerbation 3. Suspected URI CONSULTATIONS: Cardiology PROCEDURES / IMAGING: None CHIEF COMPLAINT: Acute shortness of breath and elevated heart rate SUBJECTIVE: Patient is feeling well at time of discharge, his cough is improving PHYSICAL EXAM ON DISCHARGE: Systolic blood pressure is 110, heart rate is in the 80s, afebrile overnight, satting well on room air, somewhat shortened expiratory phase bilaterally but no expiratory wheezes or bronchial breath sounds, heart rhythm is irregularly irregular but not tachycardic LABS ON DISCHARGE: Creatinine normal HOSPITAL COURSE BY PROBLEM: 1. Acute atrial flutter. Evidenced on EKG, most likely provoked in the setting of either reactive airway exacerbation or beta agonist therapy. Patient was seen in consultation by Cardiology and they recommended rate control as well as anticoagulation for the next 30 days and then reassessment in the outpatient setting for possible DC cardioversion. Patient is currently well controlled from a rate perspective with diltiazem and he has been converted to continuous dosing therapy of 120 mg daily. He has also been initiated on Eliquis 5 mg twice daily and bleeding risks have been explained to the patient. We have recommended that he treat his acute reactive airway exacerbation aggressively and then reassess whether he has any ongoing atrial flutter in the outpatient setting. I have also recommended that he use his beta agonist therapy sparingly to avoid provoking rate dysregulation. 2. Acute reactive airway exacerbation. Evidenced by diffuse bilateral expiratory wheezes and bronchial breath sounds in the setting of asymptomatic cough and shortness of breath. This is most likely provoked by a URI and he does not have a known underlying history of COPD. The patient had his steroids up titrated to 60 mg daily and he will finish out a burst of 60 mg daily tomorrow. He also received a combination of Xopenex and Atrovent while he was in the hospital and we have recommended that he utilize as needed albuterol in the outpatient setting sparingly given his recent atrial flutter exacerbation. We have also recommended that he utilize guaifenesin and codeine for cough control. He should follow up with either his primary care provider or the Pulmonary Clinic this week for reassessment. He had no evidence of acute pneumonia on chest imaging. 3. Suspected URI. No evidence of overt pneumonia, no indication to continue antibiotics. DISCHARGE MEDICATIONS: Please see official discharge medication reconciliation sheet in chart , prednisone 60 mg daily with last dose tomorrow, diltiazem continuous dosing 120 mg daily, Eliquis 5 mg twice daily, guaifenesin codeine as needed, albuterol inhaler as needed. DISCHARGE INSTRUCTIONS: Please follow up with the Pulmonary Clinic or primary care provider this week, followed by Dr. Bear. TIME SPENT: Greater than 30 minutes were spent on direct patient care, as well as discharge planning and preparation.
--- NOTE | 2016-09-27 11:34 | PDCARPN ---
Cardiology Progress Note Chief Complaint: Patient reports continue having shortness breath, but wants to go home. Assessment/Plan: Assessment: 70-year-old male with significant history PSVT, underwent ablation for nonsustained AVNRT in 2012, dyslipidemia, former smoker. Admitted 09/25/2016 for SOB, ? pulmonary infection, found to be atrial flutter with RVR. Denies of any palpitations. Has had no chest pain or pressure suggesting of ischemia. Troponins have been negative. Preliminary Echocardiogram report (09/26/2016) showing moderate LVH, no wall motion abnormalities, EF low normal at 50%, moderate MR, mildly dilated ascending aorta at 4.1. Normal RVSP. Patient has been rate control on diltiazem IV drip and transferred over to oral Cardizem. Continues to have good rate control. Started on anticoagulation of Eliquis. Been seen by pulmonology, and has been placed on increased dose steroid which improved shortness of breath. Patient reports today of feeling SOB greatly improved. Patient denies of any palpitation, or chest pressure denies of any lightheadedness. No bleeding issues since being started on Eliquis. Plan: 1. A flutter: Well controlled on current oral diltiazem, started on anticoagulation of Eliquis, patient has chads Vasc score of 2. Potentially a flutter was brought on by recent upper respiratory infection. Will continue on anticoagulation 3 weeks, if patient remains in a flutter at that time, then consideration cardioversion. 2. Hyperlipidemia, patient continue on home dose of atorvastatin. 4. Mildly dilated ascending aorta: Should have repeated echocardiogram in 6 months time. 3. Upper respiratory infection: Improved with steroid therapy. Follow-up by hospitalist services, post discharge follow up with PCP. Patient to be discharged home today, have notified our office, per Dr Bear/ Yadira request, have asked that he have a follow-up appointment with 1 of next week. Patient told to call the office for any problems or concerns post discharge or return to the hospital. Patient giving 30 day free Eliquis coupon card. 09/27/16 11:32 Subjective: Patient reports continue having shortness of breath, but has improved with steroid therapy. Denies any chest pain lightheadedness, edema, near-syncope or syncopal events Reviewed/Discussed With: hospitalist (Dr Saini), multidisciplinary team ( Patient RN), other (Dr Soler) Objective: Vital Signs (8 Hrs) Temp Pulse Resp BP Pulse Ox 09/27/16 10:54 114 H 22 H 91 L 09/27/16 07:21 36.5 C 100 16 110/84 H 91 L 09/27/16 04:00 36.4 C 98 14 126/74 H 91 L Intake/Output (24 Hrs) 09/26/16 09/27/16 09/28/16 05:59 05:59 05:59 Intake Total 513 500 Balance 513 500 Intake: Oral (ml) 500 IV Infused (ml) 513 Ns 1,000 ml @ 100 mls/hr 438 IV CONT FCO Rx#: [id number] Diltiazem 125 mg In D5w 75 125 ml @ Per Protocol IV CONT FCO Rx#:[id number] Other: Weight 97.5 kg Number of Voids Toilet 1 2 Result Diagrams: 09/26/16 07:00 09/26/16 07:00 Cardiac Labs: Cardiac Lab Results (72 Hrs) 09/26/16 09/26/16 07:00 00:40 Troponin I 0.014 < 0.012 - Physical Exam Constitutional: WDWN, healthy appearing Ears, Nose, Mouth, Throat: moist mucous membranes Cardiovascular: no rubs, no gallops, systolic murmur (2/6 over left sternal border.), irregularly irregular, pulses symmetric bilat (+2 radial pulses bilateral, +1 post tibial pulses bilateral) Peripheral Pulses: 1+: dorsalis-pedis (R), dorsalis-pedis (L), 2+: carotid (R), carotid (L) Respiratory: other (Lungs are clear upper lobes, diminished in bases bilateral, no rhonchi, rales, or wheezing noted.) Gastrointestinal: normoactive bowel sounds Neurologic: AAOx3, CN II-XII grossly intact Psychiatric: cooperative, interactive, following commands ICD10 Worksheet Patient Problems: Problems Problem Status Diagnosed Atrial flutter Acute Tachycardia Acute
== END 2016-09-27 11:50 | disposition home or self-care (01) ==
LOC: INTOOBSV 21:19 → F2W 22:42
PROVIDERS: ADMIT Family Medicine; ATTEND Internal Medicine
DX: I48.92 Unspecified atrial flutter (principal); J45.901 Unspecified asthma with (acute) exacerbation; I47.1 Supraventricular tachycardia; E78.5 Hyperlipidemia, unspecified; I48.91 Unspecified atrial fibrillation; I77.819 Aortic ectasia, unspecified site; I34.0 Nonrheumatic mitral (valve) insufficiency; H40.9 Unspecified glaucoma; G47.33 Obstructive sleep apnea (adult) (pediatric); F90.9 Attention-deficit hyperactivity disorder, unspecified type; Z87.891 Personal history of nicotine dependence
CPT/HCPCS: 71010; 93005; 93306; 96374; 96375; 99285; G0378; J0153; J1650

== ENCOUNTER → 2016-10-02 | Outpatient (CLI) | payer OTHER, MEDICARE | LOC: BHFA 13:00 | PROVIDERS: ATTEND Internal Medicine Cardiovascular Disease | DX: I48.1 Persistent atrial fibrillation (principal) ==

== ENCOUNTER 2016-10-07 10:04 | Day surgery (SDC) | payer OTHER, MEDICARE ==
[2016-10-07] MEDS ORDERED: MIDAZOLAM 2 MG/2 ML VIAL IVP ONE (10:10)
[2016-10-07] MEDS ORDERED: BENZOCAINE UNIT DOSE SPRAY HURRICAINE MM ONE (10:10)
[2016-10-07] MEDS ORDERED: fentaNYL 100 MCG/2 ML INJ IVP ONE (10:10)
[2016-10-07] MEDS ORDERED: PROPOFOL 200 MG/20 ML VIAL IVP ONE (10:10)
[2016-10-07] MEDS ORDERED: NS 500 ML IV ONE (10:10)
--- NOTE | 2016-10-07 10:33 | CPEKG ---
Heart Rate: 115 RR Interval: 522 QRSD Interval: 88 QT Interval: 356 QTC Interval: 493 QRS [place]: -16 T Wave [place]: 15 EKG Severity - ABNORMAL ECG - EKG Impression: ATRIAL FIBRILLATION, V-RATE 81-143 EKG Impression: BORDERLINE LEFT AXIS DEVIATION EKG Impression: BORDERLINE PROLONGED QT INTERVAL Electronically Signed By: Dion Avila 07-Oct-2016 10:51:53
[2016-10-07 11:12] LABS: INR 1.11 (0.83-1.16); PROTIME(PATIENT) 14.2 SEC (12.0-15.0)
[2016-10-07] MEDS ORDERED: PROPOFOL/EMULSION 500 MG/50 ML BOTTLE IV ONE (11:23)
[2016-10-07 11:24] LABS: ANION GAP 10 mEq/L (8-16); CALCIUM 9.5 mg/dL (8.5-10.4); CARBON DIOXIDE 22 mEq/l (22-31); CHLORIDE 109 mEq/L (97-110); CREATININE 0.9 mg/dL (0.7-1.3); GLOMERULAR FILTRATION RATE > 60; GLUCOSE 114 mg/dL (70-100); POTASSIUM 4.8 mEq/L (3.5-5.2); SODIUM 141 mEq/L (134-144)
--- NOTE | 2016-10-07 12:15 | CPEKG ---
Heart Rate: 86 RR Interval: 698 P-R Interval: 184 QRSD Interval: 100 QT Interval: 408 QTC Interval: 488 P [place]: -10 QRS [place]: -21 T Wave [place]: 6 EKG Severity - BORDERLINE ECG - EKG Impression: SINUS RHYTHM EKG Impression: ATRIAL PREMATURE COMPLEX EKG Impression: BORDERLINE LEFT AXIS DEVIATION EKG Impression: BORDERLINE PROLONGED QT INTERVAL Electronically Signed By: Dion Avila 07-Oct-2016 15:47:41
== END 2016-10-07 13:57 | disposition home or self-care (01) ==
LOC: FCATH 10:04
PROVIDERS: ATTEND Internal Medicine Cardiovascular Disease
DX: I48.1 Persistent atrial fibrillation (principal); E78.5 Hyperlipidemia, unspecified; E03.9 Hypothyroidism, unspecified; G47.33 Obstructive sleep apnea (adult) (pediatric); I73.9 Peripheral vascular disease, unspecified; Z79.01 Long term (current) use of anticoagulants; R03.0 Elevated blood-pressure reading, without diagnosis of hypertension; H40.9 Unspecified glaucoma; K21.9 Gastro-esophageal reflux disease without esophagitis; M10.9 Gout, unspecified
CPT/HCPCS: J2704

== ENCOUNTER 2016-11-17 07:05 | Day surgery (SDC) | payer OTHER, MEDICARE ==
[2016-11-17] MEDS ORDERED: fentaNYL 100 MCG/2 ML INJ IVP ONE (07:10)
[2016-11-17] MEDS ORDERED: MIDAZOLAM 2 MG/2 ML VIAL IVP ONE (07:10)
[2016-11-17] MEDS ORDERED: NS 500 ML IV ONE (07:10)
[2016-11-17] MEDS ORDERED: PROPOFOL 200 MG/20 ML VIAL IVP ONE (07:10)
--- NOTE | 2016-11-17 07:26 | CPEKG ---
Heart Rate: 77 RR Interval: 779 QRSD Interval: 100 QT Interval: 396 QTC Interval: 449 QRS [place]: -9 T Wave [place]: 16 EKG Severity - ABNORMAL ECG - EKG Impression: ATRIAL FIBRILLATION EKG Impression: PROBABLE POSTERIOR INFARCT EKG Impression: ATRIAL FIBRILLATION IS NEW IN COMPARISON TO PRIOR ECG Electronically Signed By: Jose Katz 17-Nov-2016 08:35:17
[2016-11-17 07:51] LABS: INR 1.26 (0.83-1.16); PROTIME(PATIENT) 15.8 SEC (12.0-15.0)
[2016-11-17 07:52] LABS: APTT 32.5 SEC (23.0-38.0)
[2016-11-17 08:02] LABS: ANION GAP 7 mEq/L (8-16); CARBON DIOXIDE 24 mEq/l (22-31); CHLORIDE 111 mEq/L (97-110); GLOMERULAR FILTRATION RATE > 60; GLUCOSE 130 mg/dL (70-100); MAGNESIUM 2.1 mg/dL (1.6-2.3); POTASSIUM 4.5 mEq/L (3.5-5.2); SODIUM 142 mEq/L (134-144)
--- NOTE | 2016-11-17 09:33 | CPEKG ---
Heart Rate: 60 RR Interval: 1000 P-R Interval: 204 QRSD Interval: 106 QT Interval: 444 QTC Interval: 444 P [place]: 40 QRS [place]: -8 T Wave [place]: 3 EKG Severity - ABNORMAL ECG - EKG Impression: SINUS RHYTHM EKG Impression: SINUS RHYTHM HAS REPLACED ATRIAL FIBRILLATION ON PRIOR ECG Electronically Signed By: Jose Katz 17-Nov-2016 09:57:34
--- NOTE | 2016-11-19 11:57 | CPR ---
[f rep st] NONINVASIVE CARDIAC PROCEDURE REPORT PROCEDURE: Cardioversion. INDICATION: Atrial fibrillation, patient has recently been loaded with Rythmol SR 225 mg b.i.d. for antiarrhythmic therapy, he failed cardioversion without antiarrhythmic therapy on board. ANTICOAGULATION: Eliquis, patient has been asked to continue his Eliquis, Rythmol, and diltiazem on a long-term basis. DESCRIPTION OF PROCEDURE: Anesthesiologist administered IV general anesthesia. After all the appro priate monitoring was established and consents were signed. A KAREN was done previously and the patie nt has not missed Eliquis since the KAREN. A single 200 joules biphasic DC shock was administered, th is did not convert him to sinus rhythm. A second 200 joules synchronized biphasic DC shock was admi nistered which converted him to sinus rhythm, and he maintained sinus rhythm. There were no complications. /[id number]/MODL
== END 2016-11-17 10:30 | disposition home or self-care (01) ==
LOC: FCATH 07:05
PROVIDERS: ATTEND Internal Medicine Cardiovascular Disease
PROC: 5A2204Z Restoration of Cardiac Rhythm, Single (ICD-10-PCS; principal; 2016-11-17)
DX: I48.91 Unspecified atrial fibrillation (principal); Z79.01 Long term (current) use of anticoagulants

== ENCOUNTER 2017-08-07 12:30 | Day surgery (SDC) | payer OTHER, MEDICARE ==
[2017-08-07] MEDS ORDERED: NS 500 ML IV ONE (12:36)
[2017-08-07] MEDS ORDERED: fentaNYL 100 MCG/2 ML INJ IVP ONE (12:36)
[2017-08-07] MEDS ORDERED: MIDAZOLAM 2 MG/2 ML VIAL IVP ONE (12:36)
[2017-08-07] MEDS ORDERED: ATROPINE SULFATE 1 MG/10 ML SYR IVP ONE (12:36)
--- NOTE | 2017-08-07 12:53 | CPEKG ---
Heart Rate: 76 RR Interval: 789 QRSD Interval: 102 QT Interval: 412 QTC Interval: 464 QRS [place]: -23 T Wave [place]: 33 EKG Severity - ABNORMAL ECG - EKG Impression: A-FLUTTER W/ VARIED AV BLOCK, A-RATE 306 EKG Impression: MULTIPLE VENTRICULAR PREMATURE COMPLEXES EKG Impression: BORDERLINE LEFT AXIS DEVIATION EKG Impression: COMPARED WITH 11/17/2016 AT 9:30 A.M. ATRIAL FLUTTER NOW PRESENT Electronically Signed By: Jina Soler 07-Aug-2017 13:32:56
[2017-08-07 13:15] LABS: INR 1.14 (0.83-1.16); PROTIME(PATIENT) 14.8 SEC (12.0-15.0)
[2017-08-07 13:16] LABS: APTT 32.8 SEC (23.0-38.0)
[2017-08-07 13:17] LABS: ANION GAP 10 mEq/L (8-16); CALCIUM 9.2 mg/dL (8.5-10.4); CARBON DIOXIDE 23 mEq/l (22-31); CHLORIDE 111 mEq/L (97-110); GLOMERULAR FILTRATION RATE > 60; GLUCOSE 105 mg/dL (70-100); POTASSIUM 4.6 mEq/L (3.5-5.2); SODIUM 144 mEq/L (134-144)
[2017-08-07] MEDS ORDERED: ETOMIDATE 40 MG/20 ML INJ IVP ONE (13:23)
--- NOTE | 2017-08-07 13:46 | PDPROPOC ---
Sedation Plan of Care Sedation Plan of Care: vital signs stable, mental status noted, patient educated of risks, benefits, alternatives, patient can tolerate sedation ASA Classification: ASA 3 Planned drugs: fentanyl, midazolam, other (etomidate 0.08mg/dL IV today...) Mallampati Score: Class 3 Mallampati Reference Image: Patient passed 3-3-2 rule?: Yes
--- NOTE | 2017-08-07 13:46 | PDHPUP ---
History & Physical Update H&P update statement: This history and physical update is based on an assessment of the patient which was completed after admission or registration (within 24 hours), but prior to the surgery/procedure. H&P update: H&P reviewed & patient examined, no change in patient's condition since H&P completed H&P changes: The patient denies any history of missing a dose of his anticoagulation...
--- NOTE | 2017-08-07 14:29 | CPEKG ---
Heart Rate: 86 RR Interval: 698 P-R Interval: 200 QRSD Interval: 102 QT Interval: 376 QTC Interval: 450 P [place]: 37 QRS [place]: -16 T Wave [place]: 16 EKG Severity - OTHERWISE NORMAL ECG - EKG Impression: SINUS RHYTHM EKG Impression: BORDERLINE LEFT AXIS DEVIATION EKG Impression: COMPARED WITH 07 AUG 2017 AT 12:51 PM, NSR HAS REPLACED ATRIAL FLUTTER Electronically Signed By: Jina Soler 08-Aug-2017 09:06:24
== END 2017-08-07 15:57 | disposition home or self-care (01) ==
LOC: FCATH 12:30
PROVIDERS: ATTEND Internal Medicine Cardiovascular Disease
PROC: 5A2204Z Restoration of Cardiac Rhythm, Single (ICD-10-PCS; principal; 2017-08-07)
DX: I48.0 Paroxysmal atrial fibrillation (principal); I48.92 Unspecified atrial flutter; M25.569 Pain in unspecified knee; E78.5 Hyperlipidemia, unspecified; E03.9 Hypothyroidism, unspecified; G47.33 Obstructive sleep apnea (adult) (pediatric); I73.9 Peripheral vascular disease, unspecified
CPT/HCPCS: J0461; J2250

== ENCOUNTER → 2017-09-24 | Outpatient (CLI) | payer OTHER, MEDICARE ==
[~2017-09-24] MED LIST: IOPAMIDOL (ISOVUE 370) 100 ML BTL IV ONE
== END ==
LOC: FIMAGING 10:32
PROVIDERS: ATTEND Internal Medicine Cardiovascular Disease
DX: I48.91 Unspecified atrial fibrillation (principal); I48.92 Unspecified atrial flutter; R91.8 Other nonspecific abnormal finding of lung field
CPT/HCPCS: 75572; Q9967

== ENCOUNTER 2017-09-29 09:38 | Observation (INO) | payer OTHER, MEDICARE ==
[2017-09-29] MEDS ORDERED: NS 1,000 ML IV ONE (10:10)
--- NOTE | 2017-09-29 10:17 | CPEKG ---
Heart Rate: 68 RR Interval: 882 P-R Interval: 180 QRSD Interval: 94 QT Interval: 404 QTC Interval: 430 P [place]: 55 QRS [place]: -8 T Wave [place]: 29 EKG Severity - OTHERWISE NORMAL ECG - EKG Impression: SINUS RHYTHM EKG Impression: VENTRICULAR PREMATURE COMPLEX Electronically Signed By: Sebastian Randolph 29-Sep-2017 11:53:45
[2017-09-29 10:24] LABS: PLATELET COUNT 265 10^3/uL (150-400)
[2017-09-29 10:37] LABS: INR 0.98 (0.83-1.16); PROTIME(PATIENT) 13.2 SEC (12.0-15.0)
[2017-09-29] MEDS ORDERED: HEPARIN/DEXTROSE 25,000 UNIT/500 ML BAG ONE (10:57)
[2017-09-29] MEDS ORDERED: HEPARIN 10,000 UNIT/10 ML MDV (1,000 UNIT/ML) ONE ×2 (10:57→12:58)
[2017-09-29] MEDS ORDERED: IOPAMIDOL (ISOVUE-300) 100 ML BTL ONE (10:58)
[2017-09-29] MEDS ORDERED: BUPIVACAINE 0.5% 30 ML SDV ONE (10:58)
--- NOTE | 2017-09-29 11:14 | PDGENHP ---
History & Physical Chief Complaint: symptomatic AFIB History of Present Illness: AFIB Pertinent Past, Social, Family History: prior AFL ablation Relevant Physical Exam: s1s2 rrr cta ao3 Cardiorespiratory Assessment: symptomatic afib despite AAD. For CB ablation
[2017-09-29] MEDS ORDERED: PROPOFOL 200 MG/20 ML VIAL ONE ×2 (11:15→12:37)
[2017-09-29] MEDS ORDERED: ROCURONIUM 50 MG/5 ML VIAL ONE (11:15)
[2017-09-29] MEDS ORDERED: fentaNYL 100 MCG/2 ML INJ ONE ×3 (11:15→14:13)
--- NOTE | 2017-09-29 11:22 | PDANEPAE ---
ANE History of Present Illness Patient presents for KAREN, A-fib/Flutter ablation. ANE Past Medical History - Cardiovascular History Hx Hypertension: Yes Hx Arrhythmias: Yes - Pulmonary History Hx COPD: Yes Hx Oxygen in Use at Home: No Hx Sleep Apnea: Yes - Endocrine History Hx Diabetes: No - Chronic Pain History Chronic Pain: No ANE Review of Systems Review of Systems: - Exercise capacity Exercise capacity: >=4 METS ANE Patient History - Allergies Allergies/Adverse Reactions: No Known Allergies Allergy (Unverified 03/16/13 10:47) - Home Medications Home medications: home medication list seen and reviewed Home Medications: Magnesium Oxide [Magnesium Oxide 400 mg (*)] 400 mg PO DAILY 03/16/13 [Last Taken 09/28/17 08:00] Methylphenidate HCl [Ritalin 5mg (*)] 10 mg PO TID PRN 03/16/13 [Last Taken 08/03 08:00] Zolpidem Tartrate [Ambien 10 mg] 10 mg PO HS PRN 03/16/13 [Last Taken 09/27/17 23:30] Aspirin EC [Aspirin EC 81 mg (*)] 81 mg PO DAILY 09/25/16 [Last Taken 09/28/17 08:00] Dorzolamide 2% [Trusopt 2% (*)] 1 drops EACHEYE BID 09/25/16 [Last Taken 07:00] Multivitamins [Multivitamin (*)] 1 each PO DAILY 09/25/16 [Last Taken 09/28/17 08:00] Atorvastatin Calcium [Lipitor 20 mg (*)] 20 mg PO DAILY 09/22/17 [Last Taken 08/03 08:00] Cyanocobalamin [Vitamin B12 (*)] 1,000 mcg PO DAILY 09/22/17 [Last Taken 08:00] Diltiazem Cd [Cardizem ER 120 MG (*)] 120 mg PO DAILY 09/22/17 [Last Taken 09/28 08:00] Fexofenadine HCl [Mariela Allergy] 60 mg PO DAILY PRN 09/22/17 [Last Taken 09/28 08:00] Herbals/Supplements -Info Only 1 ea PO DAILY 09/22/17 [Last Taken 09/28/17 08:00 ] Omeprazole [Prilosec 20 mg] 20 mg PO DAILY 09/22/17 [Last Taken 09/28/17 08:00] - NPO status NPO Status: no food or drink >8 hours - Anes Hx Anes Hx: no prior problems - Smoking Hx Smoking Status: Never smoked ANE Labs/Vital Signs - Labs Result Diagrams: 09/29/17 10:10 09/29/17 10:10 - Vital Signs Height: 180 cm Weight: 99.7 kg ANE Physical Exam - Airway Neck exam: FROM Mallampati Score: Class 2 Mouth exam: normal dental/mouth exam - Pulmonary Pulmonary: no respiratory distress - Cardiovascular Cardiovascular: regular rate and rhythym - ASA Status ASA Status: II ANE Anesthesia Plan Anesthesia Plan: general endotracheal anesthesia (RBA discussed)
[2017-09-29] MEDS ORDERED: PHENYLEPHRINE HCL 100 MCG/ML SYR ONE (11:49)
[2017-09-29] MEDS ORDERED: PROTAMINE SULFATE 50 MG/5 ML VIAL IVP ONE (14:08)
[2017-09-29] MEDS ORDERED: SUGAMMADEX SODIUM 200 MG/2 ML VIAL IVP ONE ×2 (14:35→14:41)
[2017-09-29] MEDS ORDERED: ONDANSETRON 4 MG/2 ML VIAL IVP PRN (15:26)
[2017-09-29] MEDS ORDERED: ACETAMINOPHEN 325 MG TAB PO PRN (15:26)
[2017-09-29] MEDS ORDERED: ZOLPIDEM TARTRATE 5 MG TAB PO PRN (15:33)
--- NOTE | 2017-09-29 15:41 | EPPROC ---
Electrophysiology Procedure Note: ELECTROPHYSIOLOGIC STUDY AND BALLOON-CATHETER MEDIATED CRYOABLATION FOR early persistent ATRIAL FIBRILLATION AND ATRIAL FLUTTER Procedures performed: 15942-02 EP evaluation with RA/RV/LA pace/record, with arrhythmia induction 85311-20 EP evaluation with RA/RV pace record, insert/reposition catheter, with arrhythmia induction 87745 Atrial fibrillation ablation 2ND ARRHYTHMIA Intracardiac echocardiogram Transseptal puncture Fluoroscopy INDICATION: Paroxysmal atrial fibrillation PROCEDURE: The patient arrived in the Electrophysiology Laboratory in the fasting state. The right groin, left groin and right infraclavicular area were prepped and draped in the usual sterile fashion. Anesthesiologist administered general anesthesia Dr. Cesario Garcia. All catheters were placed percutaneously using the Seldinger technique and advanced into position under fluoroscopic guidance. One #7 Nepali deflectable octapolar electrode catheter was placed in the His-bundle position via the left femoral vein (2mm spacing, IVC electrode for unipolar recordings). This catheter was placed in the coronary sinus after transseptal puncture and later placed in the SVC-R subclavian vein junction to pace the right phrenic nerve during right pulmonary vein ablation. One #8 Nepali AcuNaV ultrasound catheter was placed in the left femoral vein and advanced into the right atrium. One #4 Nepali sheath was inserted into the left femoral artery via percutaneous technique and used for continuous arterial blood pressure monitoring and intermittent ACT determination. Programmed stimulation was performed from the right atrium, left atrium (CS) and right ventricle. There was no evidence of AV accessory pathway. Intracardiac echo evaluation of the left atrium and pulmonary veins was performed. Baseline ACT was drawn and heparin bolus was administered and heparin drip was started prior to transseptal puncture. ACT was checked every 15 minutes and maintained in the range of 350-400 seconds. One 14Fr short sheath was placed in the right femoral vein. One 8Fr SL1 sheath was advanced into the right atrium via the 14Fr short sheath. Transseptal puncture was performed under intracardiac ultrasound, fluoroscopic and hemodynamic guidance placing the sheath into the left atrium. [place] RF needle ( C0 curve) was used. The mean left atrial pressure was 12 mmHg. Pulmonary vein angiogram was done using SL1 sheath. CT angiography of pulmonary veins was done previously. There were distinct LSPV, LIPV, RSPV and RIPV. The SL1 sheath was exchanged for a Medtronic Flexcath sheath using an Amplatz stiff guide wire. Sheath exchange was difficult due to septal anatomy. A 28 mm Cryoballoon catheter with a 20 mm Achieve catheter was placed via the sheath into the left atrium. Intracardiac ultrasound and PV angiograms were used to assist in placing the mapping catheter at the antrum of the pulmonary veins. All pulmonary veins were isolated successfully using cryoballoon ablation using freeze/thaw/freeze cycles at 2-3-minute intervals, with good [id number] of isolation. Coumadin ridge/Ligament of Francis region was ablated. Pre and post pulmonary vein recordings were measured on the spiral Achieve catheter to ensure complete pulmonary vein isolation. During the right-sided ablation, phrenic nerve pacing was performed to assess the phrenic nerve strength ( manually and with ICE visualization of liver movement during phrenic capture) and the phrenic nerve was intact throughout the right-sided ablation and at the end of the procedure. An esophageal temperature probe (12 electrode, Circa) was placed by the anesthesiologist at the beginning of the procedure. Esophageal temperature was monitored continuously and cryoablation was interrupted if esophageal temperature was <15 C. Cryolesions 11, cryo time 1091 seconds. ICE imaging post ablation was consistent with pre ablation imaging with no changes noted, moreover there was no left atrial/left ventricular thrombus and no pericardial effusion. The catheters were withdrawn into the right atrium. Halo catheter was placed along the tricuspid annulus. 8 mm ablation catheter was advanced through the Agilis sheath and ablation of the cava tricuspid isthmus was undertaken. Bidirectional conduction block was achieved. Septal to lateral conduction time 175 milliseconds. Protamine was given. Venous vascular access sheaths were removed in the EP lab after placing subcutaneous pursestring suture. Arterial sheath was left in place. The patient was recovered from anesthesia. There were no complications. The patient was arousable and moving all four extremities at the end of the procedure. CONCLUSIONS: 1. Early persistent atrial fibrillation. 2. Successful pulmonary vein isolation procedure (left and right pulmonary vein antrum) using cryoballoon ablation. 3. Atrial flutter. Successful ablation of cava tricuspid isthmus achieving bidirectional conduction block. 4. No apparent complications. Patient Problems: Problems Problem Status Onset Atrial fibrillation Acute Tachycardia Acute Atrial flutter Acute
--- NOTE | 2017-09-29 16:04 | CPEKG ---
Heart Rate: 83 RR Interval: 723 P-R Interval: 184 QRSD Interval: 102 QT Interval: 400 QTC Interval: 470 P [place]: 40 QRS [place]: -12 T Wave [place]: 28 EKG Severity - ABNORMAL ECG - EKG Impression: SINUS RHYTHM Electronically Signed By: Evan May 30-Sep-2017 05:31:40
[2017-09-29] MEDS: OXYCODONE/APAP 5/325 TAB PO PRN ×2 (17:52→21:46)
[2017-09-29] MEDS ORDERED: DILTIAZEM 60 MG TAB ONE (17:57)
[2017-09-29] MEDS ORDERED: DILTIAZEM 60 MG TAB PO ONE (18:00)
--- NOTE | 2017-09-29 18:00 | POSTANESTH ---
Post Anesthetic Evaluation Cardiovascular Status: Similar to Pre-Op Cond Respiratory Status: Similar to Pre-op Cond. Level of Consciousness/Mental Status: Can Participate in Eval Pain Control: Adequate, Prn Tx Ordered Nausea/Vomiting Control: Adequate, Prn Tx Ordered Complications Possibly Related to Anesthesia: None Noted
[2017-09-29] MEDS ORDERED: DILTIAZEM 25 MG/5 ML VIAL IVP ONE (20:45)
[2017-09-29] MEDS ORDERED: DILTIAZEM HCL/D5W 125 ML IV SCH (21:00)
[2017-09-29] MEDS: DORZOLAMIDE 2% OPTH DROPS EACHEYE SCH (22:10)
[2017-09-29] MEDS: ENOXAPARIN 100 MG/ML SYR SC SCH (22:10)
[2017-09-30 04:54] LABS: PLATELET COUNT 226 10^3/uL (150-400)
[2017-09-30 05:16] LABS: CREATINE KINASE 265 IU/L (0-224)
[2017-09-30] MEDS: DORZOLAMIDE 2% OPTH DROPS EACHEYE SCH (06:38)
[2017-09-30] MEDS: ENOXAPARIN 100 MG/ML SYR SC SCH (08:21)
[2017-09-30 08:41] VITALS: RESP 17; TEMP 96.6
--- NOTE | 2017-09-30 08:44 | CPEKG ---
Heart Rate: 58 RR Interval: 1034 P-R Interval: 192 QRSD Interval: 106 QT Interval: 448 QTC Interval: 441 P [place]: 42 QRS [place]: 0 T Wave [place]: 19 EKG Severity - ABNORMAL ECG - EKG Impression: SINUS RHYTHM EKG Impression: Old infero-posterior ME Electronically Signed By: Sebastian Randolph 30-Sep-2017 10:00:00
[2017-09-30] MEDS ORDERED: PANTOPRAZOLE SODIUM 40 MG TAB PO SCH (09:00)
[2017-09-30] MEDS ORDERED: MAGNESIUM OXIDE 400 MG TAB PO SCH (09:00)
[2017-09-30] MEDS ORDERED: DILTIAZEM CD 120 MG CAP PO SCH (09:00)
[2017-09-30] MEDS ORDERED: ASPIRIN EC 81 MG TAB PO SCH (09:00)
[2017-09-30] MEDS ORDERED: MULTIVITAMINS 1 EACH TAB PO SCH (09:00)
[2017-09-30] MEDS ORDERED: CETIRIZINE 10 MG TAB PO PRN (09:00)
[2017-09-30] MEDS ORDERED: CYANO/VITAMIN B12 1000 MCG TAB PO SCH (09:00)
[2017-09-30] MEDS ORDERED: ATORVASTATIN CALCIUM 20 MG TAB PO SCH (09:00)
[2017-09-30 10:57] VITALS: BP 131/90; PULSE 69; O2SAT 92
--- NOTE | 2017-09-30 11:02 | ECHO ---
[email or web address] [address] Main: [phone] Fax: Transthoracic Echocardiogram Name: CHAZ SCHMIDT MR#: [id number] Study Date: 09/30/2017 Study Time: 07:50 AM Date of : 1945 Age: 71 year(s) Height: 180.3 cm (71 in.) Weight: 99.34 kg (219 lb.) BSA: 2.19 m2 Gender: Male Examination: Echo Indication: F/U post EP study Image Quality: Contrast: Requested by: Evan May BP: 128 mmHg/80 mmHg Heart Rate: Rhythm: Indication: F/U post EP study Procedure Staff Clothing Busheler: Danita Stapleton RDCS Reading Physician: Evan May Requesting Provider: Conclusions: Normal size left ventricle. The ejection fraction is estimated to be 65-70 %. Mild mitral valve regurgitation is present. Mild tricuspid regurgitation is present. Mildly dilated aortic root measuring 4.6 cm. Mildly dilated ascending aorta measuring 4.6 cm. Repeat study is recommended in 1yr due to dilated aorta. Measurements: Chambers Valvular Assessment AV/MV Valvular Assessment TV/PV Normal Normal Normal Name Value Range Name Value Range Name Value Range Ao Pili (MM): 4.6 cm (2.2 cm-3.7 AV Vmax: 1.15 m/s (1 m/s-1.7 TR Vmax: 2.14 mm/s ( - ) cm) m/s) TR PGmax: 18 mmHg ( - ) IVSd (2D): 1.3 cm (0.6 cm-1.1 AV maxP mmHg ( - ) syst. PAP: 23 mmHg ( - ) cm) MV E Vmax: 0.68 m/s ( - ) LVDd (2D): 4.8 cm (4.2 cm-5.9 MV A Vmax: 0.56 m/s ( - ) cm) MV E/A: 1.21 ( - ) LVDs (2D): 2.8 cm (2.1 cm-4 cm) LVPWd (2D): 0.7 cm (0.6 cm-1 cm) LVEF (MOD4): 68 % (>=55 %) EF Range: 65-70 % Continued Measurements: Chambers Valvular Assessment AV/MV Valvular Assessment TV/PV Name Value Name Value Name Value LADs: 4.8 cm MV E/E' Septal: 10.00 CVP (est.): 5 mmHg Patient: CHAZ SCHMIDT Study Date: 09/30/2017 Page 1 of 2 07:50 AM LADs Lon.4 cm MV E/E' Lateral: 8.80 LA Area: 28.3 cm2 Additional Vessels Name Value Ao Ascendin.6 cm Findings: Left Ventricle: Normal size left ventricle. No LV hypertrophy. Normal global systolic LV function. The ejection fraction is estimated to be 65-70 %. No regional wall motion abnormality. Right Ventricle: Normal size right ventricle. Left Atrium: The left atrium is normal in size. Right Atrium: The right atrium is normal in size. Mitral Valve: The mitral valve is normal in appearance and function. Mild mitral valve regurgitation is present. Aortic Valve: The aortic valve is normal in appearance and function. Tricuspid Valve: The tricuspid valve is normal in appearance and function. Mild tricuspid regurgitation is present. Pulmonic Valve: The pulmonic valve is normal in appearance and function. Aorta: The aorta is normal. Mildly dilated aortic root measuring 4.6 cm. Mildly dilated ascending aorta measuring 4.6 cm. Pericardium: No pericardial effusion. (No Signature Object) Patient: CHAZ SCHMIDT Study Date: 09/30/2017 Page 2 of 2 07:50 AM [id number]
--- NOTE | 2017-10-01 03:47 | GDS ---
[f rep st] DISCHARGE SUMMARY DISCHARGE DIAGNOSES: 1. Paroxysmal atrial fibrillation. 2. Status post atrial fibrillation ablation. 3. Status post atrial flutter ablation. 4. Ascending aortic aneurysm. BRIEF HISTORY: This is a 71-year-old man with early persistent atrial fibrillation that has required cardioversion in the past. He has also had documented sustained episodes of atrial flutter. He has opted for ablation, rather than taking oral antiarrhythmic medications. HOSPITAL COURSE: Dr. May performed successful ablation of the cavotricuspid isthmus achieving bidire ctional block. Successful pulmonary vein isolation procedure using cryoballoon ablation was done. T he patient developed atrial tachycardia episodes during the evening. He had rates up to 190 beats pe r minute. He was started on a diltiazem drip, which continued over night. This was stopped at 7 in the morning and he has been maintaining sinus rhythm with PACs since then. He did not have any signi ficant symptoms while he was having these episodes of atrial tachycardia. He denies any symptoms of shortness of breath, chest discomfort, pain at his groin sites. He denies any neurological symptoms, such as vision loss, numbness or tingling. LAB WORK: WBC is 9.78, hemoglobin is 14, hematocrit is 40.9, platelets are 226. Sodium is 142, pota ssium 4.4, chloride 109, bicarb 23, BUN 17, creatinine 0.8, glucose 147, CK 265, MB fraction is 26.9, CK-MB percent is 10.2, troponin is 9.080. These are elevated and to be expected post ablation. TESTING DONE: A 12-lead EKG demonstrates sinus rhythm with PACs and no acute ST-T wave changes. Ech ocardiogram demonstrated normal ejection fraction. Mildly dilated ascending aorta measuring 4.6 cm, and no pericardial effusion. Chest CT done on September 24, 2017, prior to AFib ablation demonstrated mild atherosclerotic aorta with ascending aortic aneurysm measuring 4.3 cm. Tortuous descending aort a. No pulmonary nodules. PHYSICAL EXAM: VITAL SIGNS: Blood pressure is 130/80, pulse is 70, respirations 17, temperature is 35.9, O2 saturation on room air is 91%. GENERAL: He is alert and oriented in no acute distress. Si tting up in bed. CARDIAC: Regular rate and rhythm without murmur, rub, or gallop. LUNGS: Slightly decreased breath sounds in the bases. Otherwise, no rales. ABDOMEN: Soft, and nontender. Groin s ites are without bleeding or hematoma. EXTREMITIES: Warm. No discoloration. Bilateral pedal pulse s are +2. No lower extremity edema. DISCHARGE MEDICATIONS: Please see discharge medication reconciliation. Of note, per Dr. May due to ascending aortic aneurysm, he will stop diltiazem and start metoprolol succinate 25 mg daily. He larissa l restart his Eliquis this evening at home as he received his Lovenox dose this morning. DISCHARGE INSTRUCTIONS: Post ablation activity restrictions were discussed and the patient was given written instructions at the time of discharge. He was given an incentive spirometer and instructed to use this every 2-3 hours while awake for the next few days at home. FOLLOWUP: He has a followup scheduled with Dr. May on October 14 at 1:30. /[id number]/MODL
== END 2017-09-30 13:40 | disposition home or self-care (01) ==
LOC: FLAB 09:38 → INTOOBSV 15:09 → F2N 15:09
PROVIDERS: ADMIT Internal Medicine Cardiovascular Disease; ATTEND Internal Medicine Cardiovascular Disease
PROC: 4A023FZ Measurement of Cardiac Rhythm, Percutaneous Approach (ICD-10-PCS; principal; 2017-09-29)
PROC: 02K83ZZ Map Conduction Mechanism, Percutaneous Approach (ICD-10-PCS; principal; 2017-09-29)
PROC: 5A1213Z Performance of Cardiac Pacing, Intermittent (ICD-10-PCS; principal; 2017-09-29)
PROC: B245ZZZ Ultrasonography of Left Heart (ICD-10-PCS; principal; 2017-09-29)
PROC: 02583ZZ Destruction of Conduction Mechanism, Percutaneous Approach (ICD-10-PCS; principal; 2017-09-29)
PROC: B245ZZ4 Ultrasonography of Left Heart, Transesophageal (ICD-10-PCS; 2017-09-30)
DX: I48.1 Persistent atrial fibrillation (principal); I48.92 Unspecified atrial flutter; I47.1 Supraventricular tachycardia; I71.2 Thoracic aortic aneurysm, without rupture; G47.33 Obstructive sleep apnea (adult) (pediatric); I10 Essential (primary) hypertension
CPT/HCPCS: 93005; 93306; 93312; 93613; 93655; 93656; 93662; C1730; C1731; C1732; C1733; C1759; C1766; C1893; J1644; J1650; J2370; J2704; J2720; J3010; Q9967

== ENCOUNTER → 2017-10-28 | Outpatient (CLI) | payer OTHER, MEDICARE | LOC: BHFA 09:00 | PROVIDERS: ATTEND Internal Medicine Cardiovascular Disease | DX: I48.91 Unspecified atrial fibrillation (principal) ==

== ENCOUNTER → 2018-01-07 | Outpatient (CLI) | payer OTHER, MEDICARE | LOC: BHFA 10:30 | PROVIDERS: ATTEND Internal Medicine Cardiovascular Disease | DX: I48.91 Unspecified atrial fibrillation (principal) ==

== ENCOUNTER 2018-07-14 07:04 | Observation (INO) | payer OTHER, MEDICARE ==
[2018-07-14] MEDS ORDERED: NS 1,000 ML IV ONE (07:18)
[2018-07-14 08:00] LABS: PLATELET COUNT 283 10^3/uL (150-400)
[2018-07-14 08:07] LABS: INR 1.12 (0.83-1.16); PROTIME(PATIENT) 14.6 SEC (12.0-15.0)
--- NOTE | 2018-07-14 08:10 | PDANEPAE ---
ANE History of Present Illness A-fib/A-flutter ablation ANE Past Medical History - Cardiovascular History Hx Hypertension: Yes Hx Arrhythmias: Yes Hx Chest Pain: No Hx Coronary Artery / Peripheral Vascular Disease: No Hx CHF / Valvular Disease: No Hx Palpitations: Yes - Pulmonary History Hx COPD: No Hx Asthma/Reactive Airway Disease: No Hx Recent Upper Respiratory Infection: No Hx Oxygen in Use at Home: No Hx Sleep Apnea: Yes Pulmonary History Comment: wears CPAP - Endocrine History Hx Diabetes: No Hypothyroid: No Hyperthyroid: No Obesity: no - Renal History Hx Renal Disorders: No - Liver History Hx Hepatic Disorders: No - Chronic Pain History Chronic Pain: No ANE Review of Systems Review of Systems: - Exercise capacity Exercise capacity: >=4 METS ANE Patient History - Allergies Allergies/Adverse Reactions: No Known Allergies Allergy (Verified 07/07/18 09:44) - Home Medications Home Medications: Methylphenidate HCl [Ritalin 5mg (*)] 10 mg PO TID PRN 03/16/13 [Last Taken 14:00] Dorzolamide 2% [Trusopt 2% (*)] 1 drops EACHEYE BID 09/25/16 [Last Taken 04:45] Multivitamins [Multivitamin (*)] 1 each PO DAILY 09/25/16 [Last Taken 07/13/18 08:00] Atorvastatin Calcium [Lipitor 20 mg (*)] 20 mg PO DAILY 09/22/17 [Last Taken 04:45] Cyanocobalamin [Vitamin B12 (*)] 2,000 - 2,500 mcg PO DAILY 09/22/17 [Last Taken 07/13/18 08:00] Herbals/Supplements -Info Only 1 ea PO DAILY 09/22/17 [Last Taken 07/13/18 08:00 ] Ascorbic Acid [Vitamin C 500 mg (*)] 1,000 mg PO DAILY 07/07/18 [Last Taken 08:00] Metoprolol Succinate 12.5 mg PO BID 07/07/18 [Last Taken 07/08/18 18:00] - NPO status NPO Status: no food or drink >8 hours - Anes Hx Anes Hx: no prior problems - Smoking Hx Smoking Status: Never smoked - Family Anes Hx Family Anes Hx: none ANE Labs/Vital Signs - Labs Result Diagrams: 07/14/18 07:30 07/14/18 07:30 - Vital Signs Height: 180 cm Weight: 93.4 kg ANE Physical Exam - Airway Neck exam: FROM Mallampati Score: Class 2 Mouth exam: normal dental/mouth exam, small mouth opening - Pulmonary Pulmonary: no respiratory distress - Cardiovascular Cardiovascular: regular rate and rhythym - ASA Status ASA Status: II
[2018-07-14] MEDS ORDERED: LIDOCAINE 1% 300 MG/30 ML SDV ONE (08:19)
[2018-07-14] MEDS ORDERED: HEPARIN 10,000 UNIT/10 ML MDV (1,000 UNIT/ML) ONE (08:19)
[2018-07-14] MEDS ORDERED: ISOPROTERENOL HCL/D5W 0.2 MG/50 ML BAG IV ONE ×2 (08:20→10:46)
[2018-07-14] MEDS ORDERED: BUPIVACAINE 0.75% 10 ML SDV ONE (08:20)
[2018-07-14] MEDS ORDERED: MIDAZOLAM 2 MG/2 ML VIAL IVP ONE (08:22)
[2018-07-14] MEDS ORDERED: fentaNYL 100 MCG/2 ML INJ ONE (08:24)
[2018-07-14] MEDS ORDERED: PROPOFOL 200 MG/20 ML VIAL ONE (08:24)
[2018-07-14] MEDS ORDERED: ROCURONIUM 50 MG/5 ML VIAL ONE ×2 (08:27→10:42)
[2018-07-14] MEDS ORDERED: MIDAZOLAM 2 MG/2 ML VIAL ONE (08:27)
[2018-07-14] MEDS ORDERED: DEXAMETHASONE 4 MG/ML VIAL ONE ×2 (08:28)
[2018-07-14] MEDS ORDERED: ONDANSETRON 4 MG/2 ML VIAL ONE (08:29)
--- NOTE | 2018-07-14 08:42 | PDGENHP ---
History & Physical Chief Complaint: SVT, history of atrial flutter History of Present Illness: Patient has been experiencing increasing frequency of SVT. Episodes captured on Kardia. He presents today for EPS with SVT ablation Relevant Physical Exam: General: A&Ox4, no apparent distress. Respiratory: CTA. Cardiac: regular rate and rhythm. Extremities: normal exam, no edema, pulses 2+ bilaterally Cardiorespiratory Assessment: Proceed with EPS and SVT ablation today. Will also plan to check atrial flutter line from prior ablation.
[2018-07-14] MEDS ORDERED: PHENYLEPHRINE HCL 100 MCG/ML SYR ONE (09:09)
--- NOTE | 2018-07-14 09:18 | CPEKG ---
Test Reason : OPEN Blood Pressure : / mmHG Vent. Rate : 062 BPM Atrial Rate : 062 BPM P-R Int : 183 ms QRS Dur : 098 ms QT Int : 419 ms P-R-T Axes : 036 000 027 degrees QTc Int : 426 ms Sinus rhythm Right ventricular conduction defect No significant change from September 30, 2017 Confirmed by Estuardo Espana ([id number]) on 07/14/2018 9:17:26 AM Referred By: Confirmed By:Estuardo Espana
[2018-07-14] MEDS ORDERED: GLYCOPYRROLATE 0.2 MG/1 ML VIAL ONE ×2 (11:08)
[2018-07-14] MEDS ORDERED: NEOSTIGMINE METHYLSULFATE 5 MG/5 ML SYR ONE (11:08)
[2018-07-14] MEDS ORDERED: PROMETHAZINE HCL 25 MG/ML INJ IVP PRN (11:15)
[2018-07-14] MEDS ORDERED: fentaNYL 100 MCG/2 ML INJ IVP PRN (11:15)
[2018-07-14] MEDS ORDERED: MEPERIDINE 25 MG/0.5 ML AMP IVP PRN (11:15)
[2018-07-14] MEDS ORDERED: NALOXONE HCL 0.4 MG/ML INJ IVP PRN (11:15)
[2018-07-14] MEDS ORDERED: HYDROmorphONE/DILAUDID 2 MG/ML INJ IVP PRN (11:15)
[2018-07-14] MEDS ORDERED: METOCLOPRAMIDE 10 MG/2 ML VIAL IVP PRN (11:15)
[2018-07-14] MEDS ORDERED: oxyCODONE IR 5 MG TAB PO PRN (11:15)
[2018-07-14] MEDS ORDERED: ALBUTEROL 3 ML DEYVIAL IH PRN (11:15)
[2018-07-14] MEDS ORDERED: LABETALOL HCL 20 MG/4 ML INJ IVP PRN (11:15)
[2018-07-14] MEDS ORDERED: ACETAMINOPHEN 500 MG TAB PO PRN (11:15)
--- NOTE | 2018-07-14 12:03 | POSTANESTH ---
Post Anesthetic Evaluation Cardiovascular Status: Normal, Stable Respiratory Status: Normal, Stable Level of Consciousness/Mental Status: Can Participate in Eval Pain Control: Adequate, Prn Tx Ordered Nausea/Vomiting Control: Adequate, Prn Tx Ordered Complications Possibly Related to Anesthesia: None Noted
--- NOTE | 2018-07-14 12:12 | EPPROC ---
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 The right clavicular region, right groin, and left groin area were prepped and draped in the usual sterile manner. Anesthesiologist administered general anesthesia. Appropriate non-invasive blood pressure, pulse oximetry and end- tidal CO2 monitoring was established. All catheters were placed percutaneously using the modified Seldinger technique , and advanced into position under fluoroscopic guidance. One #6 Wallisian hexapolar non-deflectable electrode catheter was inserted into the right atrial appendage via the left femoral vein (2mm spacing; except the proximal ring which was 25cm from the tip used for unipolar recordings). One #7 Wallisian deflectable octapolar electrode catheter was advanced to the His-bundle position via the left femoral vein (2mm spacing). One #7 Wallisian deflectable quadrapolar catheter was advanced to the anteroseptal right ventricle via the right femoral vein. One #7 Wallisian deflectable catheter with 10 pairs of electrodes was placed via the right femoral vein into the coronary sinus. Patient was on Eliquis, no heparin was given for procedure. Programmed stimulation was performed from the right atrium, right ventricle and coronary sinus (left atrium). Parahisian pacing demonstrated constant H-A interval with changing V-A intervals and stimulus-A intervals during capture and loss of capture of proximal RBB proving retrograde conduction over AV node. AVNRT was induced easily during infusion of isoproterenol 2 mcg/min. Ventricular extrastimuli delivered during tachycardia without altering antegrade His bundle activation did not advance next atrial potential, indicating that the tachycardia was not utilizing an accessory pathway for retrograde conduction. Post entrainment of the tachycardia from the ventricle , there was VAHV response, but not consistently and intermittently there was VA dissociation. Therefore, atrial tachycardia remained in differential diagnosis. We mapped earliest atrial activation during supraventricular tachycardia using Mobi sheath and 4 mm Carto catheter. This was seen in the region of the mid septal tricuspid annulus, just outside the coronary sinus ostium. RF application at this site terminated supraventricular tachycardia. Following this there was junctional rhythm. Subsequent ablations were performed between the mid septal tricuspid annulus and coronary sinus ostium. Ablation was also performed at the superior aspect of the coronary sinus and the anteroapical edge of the coronary sinus with junctional automaticity. Programmed stimulation was continued post ablation at baseline and during graded doses of isoproterenol upto 4mcg/min. Sustained AVNRT was not inducible. There were no echo beats. The catheters were removed. The long sheath was changed to a short 9 Fr sheath. The patient was transferred to the cardiovascular holding area in stable condition. Vascular access sheaths were removed in the holding area. There were no apparent complications. Results: A. Spontaneous Intervals: Pre ablation SCL 1020 ms AH 110 ms HV 45 ms Post ablation SCL 970 ms AH 100 ms HV 45 ms B. Antegrade AV micki function (decremental pacing) Pre ablation FPERP 440 ms WBB CL 430 ms Post ablation FPERP 360 ms WBB CL 350 ms C. Retrograde AV micki function (decremental pacing) Pre ablation FPERP 440 ms WBB CL 430 ms D. Arrhythmias: Sustained fast/slow (atypical) AVNRT Cycle length 340 ms, AH interval 140 ms, RICKETTS interval 200 ms CONCLUSIONS 1. AV micki reentrant tachycardia, atypical variant (fast.slow AVNRT) 2. Successful ablation of the slow AV micki pathway with elimination of 1:1 antegrade conduction over the slow AV micki pathway, all retrograde conduction over the slow AV micki pathway and the inducibility of AVNRT. 3. No complications. Patient Problems: Problems Problem Status Onset Atrial fibrillation Acute Tachycardia Acute Atrial flutter Acute
[2018-07-14] MEDS ORDERED: KETOROLAC 15 MG/1 ML SDV IVP ONE (12:45)
--- NOTE | 2018-07-14 14:06 | CPEKG ---
Test Reason : OPEN Blood Pressure : / mmHG Vent. Rate : 054 BPM Atrial Rate : 000 BPM P-R Int : 179 ms QRS Dur : 138 ms QT Int : 429 ms P-R-T Axes : 038 -15 004 degrees QTc Int : 407 ms Sinus rhythm Multiple premature complexes, vent & supraven -- New since July 14, 2018, 07:40 Right bundle branch block -- New since July 14, 2018, 07:40 Confirmed by Estuardo Espana ([id number]) on 07/14/2018 2:06:12 PM Referred By: Confirmed By:Estuardo Espana
[2018-07-14] MEDS: METOPROLOL SUCCINATE XR 25 MG TAB PO SCH (20:46)
[2018-07-14] MEDS: APIXABAN 5 MG TAB PO SCH (20:46)
[2018-07-14] MEDS ORDERED: DORZOLAMIDE 2% OPTH DROPS EACHEYE SCH (21:00)
[2018-07-14] MEDS: DORZOLAMIDE/TIMOLOL 10 ML OPHT.BTL EACHEYE SCH (22:22)
[2018-07-15 04:38] LABS: PLATELET COUNT 261 10^3/uL (150-400)
[2018-07-15 07:32] VITALS: BP 139/80
[2018-07-15] MEDS: METOPROLOL SUCCINATE XR 25 MG TAB PO SCH (08:18)
[2018-07-15] MEDS: APIXABAN 5 MG TAB PO SCH (08:19)
[2018-07-15] MEDS: DORZOLAMIDE/TIMOLOL 10 ML OPHT.BTL EACHEYE SCH (08:19)
[2018-07-15] MEDS ORDERED: ASCORBIC ACID 500 MG TAB PO SCH (09:00)
[2018-07-15] MEDS ORDERED: ATORVASTATIN CALCIUM 20 MG TAB PO SCH (09:00)
--- NOTE | 2018-07-15 09:09 | ECHO ---
[email or web address] [address] [address] Main: [phone] Fax: Transthoracic Echocardiogram Name: CHAZ SCHMIDT MR#: [id number] Study Date: 07/15/2018 Study Time: 08:00 AM Date of : 1945 Age: 72 year(s) Height: 177.8 cm (70 in.) Weight: 94.35 kg (208 lb.) BSA: 2.12 m2 Gender: Male Examination: Echo Indication: Post EP Image Quality: Contrast: Requested by: Deepak Salinas BP: 139 mmHg/80 mmHg Heart Rate: Rhythm: Normal sinus rhythm with ectopy Indication: Post EP Procedure Staff Behavioral Health Technician: Eliceo Radford RDCS Reading Physician: Evan May MD Requesting Provider: Conclusions: Normal global systolic LV function. Mild mitral valve regurgitation is present. The previous exam of 09/30/17 measured the Ascending AO at 4.6cm. The Ao measures 3.7cm on 07/15/18 exam.. [facility] CTA to assess ascending aorta on outpatient basis. Measurements: Chambers Valvular Assessment AV/MV Valvular Assessment TV/PV Normal Normal Normal Name Value Range Name Value Range Name Value Range Ao Pili (MM): 4.3 cm (2.2 cm-3.7 AV Vmax: 1.30 m/s (1 m/s-1.7 TR Vmax: 2.24 mm/s ( - ) cm) m/s) TR PGmax: 20 mmHg ( - ) IVSd (2D): 0.6 cm (0.6 cm-1.1 AV maxP mmHg ( - ) syst. PAP: 25 mmHg ( - ) cm) LVOT Vmax: 0.97 m/s (0.7 m/s-1.1 PV Vmax: 0.81 m/s (0.6 m/s-0.9 LVDd (2D): 5.3 cm (4.2 cm-5.9 m/s) m/s) cm) MV E Vmax: 0.79 m/s ( - ) PV PGmax: 3 mmHg ( - ) LVDs (2D): 3.3 cm (2.1 cm-4 MV A Vmax: 0.50 m/s ( - ) cm) MV E/A: 1.58 ( - ) LVPWd (2D): 0.9 cm (0.6 cm-1 cm) LVEF (2D): 68 (>=54 %) Continued Measurements: Chambers Valvular Assessment TV/PV Name Value Name Value LADs: 4.3 cm CVP (est.): 5 mmHg LADs Lon.9 cm LA Area: 18.8 cm2 LA Volume: 64 ml Patient: CHAZ SCHMIDT Study Date: 07/15/2018 Page 1 of 2 08:00 AM LA Volume Index: 30.2 ml/m2 Findings: Left Ventricle: Normal size left ventricle. No LV hypertrophy. Normal global systolic LV function. EF is 68 %. No regional wall motion abnormality. Grade 1 diastolic dysfunction (abnormal relaxation). Right Ventricle: Normal size right ventricle. Normal RV function. Left Atrium: The left atrium is normal in size. Right Atrium: The right atrium is normal in size. Mitral Valve: The mitral valve is normal in appearance and function. Mild mitral valve regurgitation is present. Aortic Valve: The aortic valve is tri-leaflet. There is no significant aortic valve regurgitation. No aortic valve stenosis is present. Tricuspid Valve: Trivial to mild tricuspid valve regurgitation. The pulmonary artery pressure is normal. Pulmonic Valve: The pulmonic valve is normal in appearance and function. Aorta: The previous exam of 09/30/17 measured the Ascending AO at 4.6cm. The Ao measures 3.7cm on 07/15/18 exam.. Pericardium: No pericardial effusion. (No Signature Object) Patient: CHAZ SCHMIDT Study Date: 07/15/2018 Page 2 of 2 08:00 AM [id number]
--- NOTE | 2018-07-15 19:17 | GDS ---
ADMISSION DIAGNOSIS: Supraventricular tachycardia. DISCHARGE DIAGNOSIS: Supraventricular tachycardia status post successful ablation. HOSPITAL COURSE: The patient presented 07/14/2018 for catheter mediated SVT ablation with Dr. Evan May. 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 There were no apparent complications during this procedure. The patient has done very well overnight without issue. Labs this morning are within normal limits for the postprocedure period including WBCs 13.6 and troponin 0.145. Echo this morning is unremarkable aside from ascending aortic dilation measuring 4.6 cm. Vital signs this morning are stable. He is appropriate for discharge home today. PHYSICAL EXAM: VITAL SIGNS: Blood pressure 139/80, SpO2 91% on room air. Heart rate 68. GENERAL: No apparent distress. Patient is alert and oriented x4. No concerning neurologic symptoms. Respiratory exam clear to auscultations without adventitious breath sounds. CARDIAC EXAMINATION: Regular rate and rhythm. EXTREMITIES: Pulses 2+ bilaterally. Bilateral purse string sutures removed without evidence of hematoma, redness, oozing, swelling or warmth to the bilateral groin access sites. MEDICATIONS: The patient has been restarted on his Eliquis 5 mg twice daily and metoprolol 12.5 mg twice daily. He will otherwise continue his home medication regimen as prescribed. Please see his electronic medical record for full list of his home medications. DISCHARGE INSTRUCTIONS: 1. Groin precautions reviewed in detail with the patient. He will avoid heavy lifting more than 10 pounds for 10 days. He will get up and walk around frequently and he will avoid submerged bathing during the same timeframe. 2. He will follow up in clinic in 4 weeks. 3. He will have a chest CTA to follow-up on his ascending aortic dilation. We will also follow up on this during his clinic visit in 1 month. 4. He will contact our clinic with any new or concerning symptoms in the meantime. /[id number]/MODL MTDD
== END 2018-07-15 10:35 | disposition home or self-care (01) ==
LOC: FSGY 07:04 → F2W 11:16
PROVIDERS: ADMIT Registered Nurse; ATTEND Internal Medicine Cardiovascular Disease
DX: I47.1 Supraventricular tachycardia (principal)
CPT/HCPCS: 93005; 93306; 93613; 93621; 93623; 93653; C1730; C1731; C1732; C1766; J1100; J1644; J1885; J2250; J2370; J2405; J2704; J2710; J3010; G0378

== ENCOUNTER → 2018-07-20 | Outpatient (CLI) | payer OTHER, MEDICARE | LOC: FIMAGING 15:11 | PROVIDERS: ATTEND Internal Medicine Cardiovascular Disease | DX: I71.2 Thoracic aortic aneurysm, without rupture (principal) | CPT/HCPCS: 71275; Q9967 ==

== ENCOUNTER → 2018-08-06 | Outpatient (CLI) | payer OTHER, MEDICARE | LOC: GIMAGING 09:56 | PROVIDERS: ATTEND Family Medicine | DX: R05 Cough (principal) | CPT/HCPCS: 71046-PO ==

== ENCOUNTER 2019-02-07 11:08 | Observation (INO) | payer OTHER, MEDICARE | END 2019-02-08 10:40 | disposition home or self-care (01) | LOC: FCATH 11:08 → F2W 16:55 ==